=== PATIENT | female | born 1930 | race Caucasian/White ===

== ENCOUNTER 2016-06-20 13:14 | Inpatient (IN) | payer MEDICARE ==
[~2016-06-20] VITALS: Ht 167.6 cm; Wt 84.6 kg
[2016-06-20] VITALS (10 sets, daily range): BP systolic 78–123; BP diastolic 52–57; PULSE 96–109; RESP 10–24; TEMP 95.7–96.4; O2SAT 94–99
[~2016-06-20 13:14] MED LIST: CALCIUM CHLORIDE 10% SOLN 1 GRAM/10 ML SYR IV ONE; NORMOSOL R INJ 1,000 ML IV ONE; ONDANSETRON HCL 4 MG/2 ML VIAL IV PUSH ONE; PHENYLEPH/NS 1000 MCG/10 ML SYR IV ONE; PROPOFOL 200 MG/20 ML AMP IV ONE; SODIUM BICARBONATE 8.4% INJ 50 MEQ/50 ML SYR IV ONE; ePHEDrine/NS 25 MG/5 ML SYR IV ONE
[2016-06-20] MEDS ORDERED: COLA100C3 PO (13:38)
[2016-06-20] MEDS ORDERED: PROT40TA PO (13:38)
[2016-06-20] MEDS ORDERED: LACT10SO48 PO (13:38)
--- NOTE | 2016-06-20 13:40 | PD ---
HPI Chief Complaint: GI Complaint Time Seen by Provider: 13:40 Travel History International Travel<30 days: No Contact w/Intl Traveler<30days: No Traveled to known affect area: No History of Present Illness HPI 86-year-old female came to the emergency room with history of abdominal pain and blood pressure of 60 over palp. The history was partially obtained from the customer solutions architect and partially from the daughter who followed her soon after she was here. As per the daughter patient was released from [facility] about 3 weeks ago to the [facility] half-way. She was taken to [facility] in May 24 for confusion. She was diagnosed with anemia and UTI. Her hemoglobin level was 6.5. She received 3 blood transfusions and an upper endoscopy. As per the daughter she was told that she had a small erosion in her stomach which was not actively bleeding. The GI specialist did not think a colonoscopy would be a good idea given her age. She was given antibiotic for the UTI. She was discharged on Protonix. While in [facility] rehabilitation patient started complaining of left lower quadrant pain since past one week. As per the daughter she doesn't think she got evaluated for it. Today when the daughter went to check on her she found that her mother was looking very ill and frail and insisted that 911 should be called. EMS had given her about 500 cc of IV fluid. They were unable to get a temperature or pulse ox given acrocyanosis. Patient was on nonrebreather saturating 93%. She was awake and talking but seemed to be in distress. She pointed to her entire abdomen when asked regarding the location of the pain. Daughter says prior to all this her mother was not on any medications and very healthy. [facility] Past Medical History Narrative Medical List of her past medical, surgical, social and family history was reviewed from the nursing note. Anemia: Yes Arthritis: Yes (RA) Gastrointestinal Disorders: Yes (GI BLEED) Social History Alcohol Use: No Tobacco Use: No Substance Use: No Allergies-Medications (Allergen,Severity, Reaction): Coded Allergies: Beta Blockers (Verified Allergy, Severe, 06/20/16) Cipro (Verified Allergy, Severe, 06/20/16) Codeine (Verified Allergy, Severe, 06/20/16) Diazepam (Verified Allergy, Severe, 06/20/16) HMG-CoA Reductase Inhibitors (Verified Allergy, Severe, 06/20/16) Morphine (Verified Allergy, Severe, 06/20/16) Penicillin (Verified Allergy, Severe, 06/20/16) Sulfa (Verified Allergy, Severe, 06/20/16) Comments List of her allergies reviewed from the nursing note. Reported Meds & Prescriptions Reported Meds & Active Scripts Active Reported Protonix (Pantoprazole Sodium) 40 Mg Tab 40 Mg PO DAILY Constulose Liq (Lactulose) 10 Gm/15 Ml Soln 30 Ml PO Q12HR Colace (Docusate Sodium) 100 Mg Cap 100 Mg PO BID Narrative Medication List of her home medications reviewed from the nursing note. Review of Systems Except as stated in HPI: all other systems reviewed are Neg Physical Exam Narrative GENERAL: Awake, alert, elderly and frail, significant distress SKIN: Focused skin assessment warm/dry. HEAD: Atraumatic. Normocephalic. EYES: Pupils equal and round. No scleral icterus. No injection or drainage. ENT: No nasal bleeding or discharge. Mucous membranes dry. NECK: Trachea midline. No JVD. CARDIOVASCULAR: Regular rate and rhythm. No murmur appreciated. RESPIRATORY: No accessory muscle use. Clear to auscultation. Breath sounds equal bilaterally. GASTROINTESTINAL: Abdomen diffusely tender and distended. Absent bowel sounds. Hepatic and splenic margins not palpable. MUSCULOSKELETAL: No obvious deformities. No clubbing. No cyanosis. No edema. NEUROLOGICAL: Awake and alert. No obvious cranial nerve deficits. Motor grossly within normal limits. Normal speech. PSYCHIATRIC: Appropriate mood and affect; insight and judgment normal. Data Data Last Documented VS Orders Ct Brain W/O Iv Contrast(Rout) (06/20/16 ) Ct Thorax/ Chest Wo Iv Contras (06/20/16 ) Ct Abd/Pel W/O Iv Contrast (06/20/16 ) Electrocardiogram (06/20/16 13:41) Complete Blood Count With Diff (06/20/16 13:41) Comprehensive Metabolic Panel (06/20/16 13:41) Creatine Kinase (Cpk) (06/20/16 13:41) Prothrombin Time / Inr (Pt) (06/20/16 13:41) Troponin I (06/20/16 13:41) Thyroid Stimulating Hormone (06/20/16 13:41) Lactic Acid Sepsis Protocol (06/20/16 13:41) Urinalysis - C+S If Indicated (06/20/16 13:41) Blood Culture (06/20/16 13:41) Chest, Single Ap (06/20/16 13:41) Blood Glucose (06/20/16 13:41) Ecg Monitoring (06/20/16 13:41) Iv Access Insert/Monitor (06/20/16 13:41) Oximetry (06/20/16 13:41) Sodium Chloride 0.9% Flush (Ns Flush) (06/20/16 13:45) Sodium Chlor 0.9% 1000 Ml Inj (Ns 1000 M (06/20/16 13:41) Drug Screen, Random Urine (06/20/16 13:41) Salicylates (Aspirin) (06/20/16 13:41) Tylenol (Acetaminophen) (06/20/16 13:41) Sodium Chlor 0.9% 1000 Ml Inj (Ns 1000 M (06/20/16 13:45) Sodium Chlor 0.9% 1000 Ml Inj (Ns 1000 M (06/20/16 13:45) Aztreonam Inj (Azactam Inj) (06/20/16 13:45) Vancomycin Inj (Vancomycin Inj) (06/20/16 13:45) Type And Screen (06/20/16 13:41) Urinary Catheter Insert/Apply (06/20/16 13:41) Saran-Gastric Tube Insert/Mon (06/20/16 14:03) Admit Order (Ed Use Only) (06/20/16 14:24) Red Blood Cells (Rbc) (06/20/16 14:00) Labs Laboratory Tests Test 06/20/16 06/20/16 13:50 14:00 White Blood Count 16.1 TH/MM3 Red Blood Count 4.17 MIL/MM3 Hemoglobin 10.7 GM/DL Hematocrit 33.5 % Mean Corpuscular Volume 80.3 FL Mean Corpuscular Hemoglobin 25.6 PG Mean Corpuscular Hemoglobin 31.9 % Concent Red Cell Distribution Width 22.5 % Platelet Count 282 TH/MM3 Mean Platelet Volume 8.0 FL Neutrophils (%) (Auto) 90.4 % Lymphocytes (%) (Auto) 4.7 % Monocytes (%) (Auto) 4.8 % Eosinophils (%) (Auto) 0.0 % Basophils (%) (Auto) 0.1 % Neutrophils # (Auto) 14.5 TH/MM3 Lymphocytes # (Auto) 0.8 TH/MM3 Monocytes # (Auto) 0.8 TH/MM3 Eosinophils # (Auto) 0.0 TH/MM3 Basophils # (Auto) 0.0 TH/MM3 CBC Comment AUTO DIFF Differential Total Cells 100 Counted Neutrophils % (Manual) 61 % Band Neutrophils % 21 % Lymphocytes % 9 % Monocytes % 8 % Neutrophils # (Manual) 13.4 TH/MM3 Myelocytes 1 % Differential Comment FINAL DIFF MANUAL Platelet Estimate NORMAL Platelet Morphology Comment NORMAL Daniel Cells 1+ Acanthocytes 1+ Blood Type O NEGATIVE Antibody Screen NEGATIVE Crossmatch Leukocyte-Reduced Red Blood Cells Blood Bank Comment MDM Medical Decision Making Medical Screen Exam Complete: Yes Emergency Medical Condition: Yes Medical Record Reviewed: Yes Interpretation(s) Twelve-lead EKG was reviewed by me. Normal sinus rhythm, left axis deviation, old inferior and anterior OR, tachycardia. Heart rate of 100 bpm. Differential Diagnosis Ruptured AAA, perforated viscus, sepsis Narrative Course 2 PM I did a bedside quick ultrasound looking for AAA which I did not see. Patient was a difficult peripheral IV access and I decided to put a central line given her poor hemodynamic status. Patient tolerated the procedure well. I ordered total of 3 L of IV fluid bolus and antibiotic covering for sepsis. She was taken emergently to CT scan which showed a perforation with large amount of free air in the abdomen. Surgeon Dr. Wilson was contacted as well as the commercial retoucher Dr. Pitts. Dr. Wilson and Dr. Pitts both came down and saw the patient. Patient will be taken emergently for surgery. Meanwhile the CAT scan was reviewed and showed a mass in the left lower quadrant. At ordered a CT scan of her thorax as well which showed large right-sided pleural effusion with a possible metastatic lesion in the lung. Patient will be admitted to the ICU after the surgery. Her last blood pressure was 105 systolic before she left the ER. I spoke at length with her daughter and explained to her the critical condition of her mother. She had lots of question and I tried to answer to the best of my ability. Dr. Pitts and Dr. Wilson also spoke with the daughter. Daughter wanted everything to be done to save her mother's life. Critical Care Narrative Aggregate critical care time was 60 minutes. Time to perform other separately billable procedures was not included in the critical care time. My time did not include minutes spent treating any other patients simultaneously or on activities that did not directly contribute to the patient's treatment. The services I provided to this patient were to treat and/or prevent clinically significant deterioration that could result in: Septic shock, fluid resuscitation, perforated viscus I provided critical care services requiring my management, as noted below: Chart data review, documentation time, medication orders and management, vital sign assessments/reviewing monitor data, ordering and reviewing lab tests, ordering and interpreting/reviewing x-rays and diagnostic studies, care of the patient and discussion of the patient with the admitting physicians. Procedures Procedure Narrative CENTRAL VENOUS LINE: The site was prepped with Betadine and sterilely draped. It was infiltrated with 1% lidocaine plain. The deep vein was cannulated using normal Seldinger technique. A triple lumen central line was placed in the left subclavian site and secured with simple interrupted suture. The site was sterilely dressed. The patient tolerated the procedure well. Emergency department Abdominal Aortic Aneurysm ultrasound was performed with patient consent. Curvilinear probe was used in the transverse and sagittal views within the epigastric, supraumbilical, and infraumbilical without evidence of Abdominal Aortic Aneurysm. In fact no aorta was visualized. EKG Prior to Arrival: No Physician Communication Physician Communication Dr. Wilson, Dr. 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 Patient was a difficult peripheral IV access and I decided to put a central line given her poor hemodynamic status. Patient tolerated the procedure well. I ordered total of 3 L of IV fluid bolus and antibiotic covering for sepsis. She was taken emergently to CT scan which showed a perforation with large amount of free air in the abdomen. Surgeon Dr. Wilson was contacted as well as the commercial retoucher Dr. Pitts. Dr. Wilson and Dr. Pitts both came down and saw the patient. Patient will be taken emergently for surgery. Meanwhile the CAT scan was reviewed and showed a mass in the left lower quadrant. At ordered a CT scan of her thorax as well which showed large right-sided pleural effusion with a possible metastatic lesion in the lung. Patient will be admitted to the ICU after the surgery. Her last blood pressure was 105 systolic before she left the ER. I spoke at length with her daughter and explained to her the critical condition of her mother. She had lots of question and I tried to answer to the best of my ability. Dr. Pitts and Dr. Wilson also spoke with the daughter. Daughter wanted everything to be done to save her mother's life. Critical Care Narrative Aggregate critical care time was 60 minutes. Time to perform other separately billable procedures was not included in the critical care time. My time did not include minutes spent treating any other patients simultaneously or on activities that did not directly contribute to the patient's treatment. The services I provided to this patient were to treat and/or prevent clinically significant deterioration that could result in: Septic shock, fluid resuscitation, perforated viscus I provided critical care services requiring my management, as noted below: Chart data review, documentation time, medication orders and management, vital sign assessments/reviewing monitor data, ordering and reviewing lab tests, ordering and interpreting/reviewing x-rays and diagnostic studies, care of the patient and discussion of the patient with the admitting physicians. Procedures Procedure Narrative CENTRAL VENOUS LINE: The site was prepped with Betadine and sterilely draped. It was infiltrated with 1% lidocaine plain. The deep vein was cannulated using normal Seldinger technique. A triple lumen central line was placed in the left subclavian site and secured with simple interrupted suture. The site was sterilely dressed. The patient tolerated the procedure well. EKG Prior to Arrival: No Physician Communication Physician Communication Dr. Wilson, Dr. 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
[2016-06-20] MEDS ORDERED: SODIUM CHLOR 0.9% 1000 ML INJ 1,000 ML IV SCH (13:41)
[2016-06-20] MEDS ORDERED: AZTREONAM INJ 2,000 MG in SODIUM CHLORIDE 0.9% INJ 100 ML IV ONE (13:45)
[2016-06-20] MEDS ORDERED: VANCOMYCIN INJ 1,000 MG in SODIUM CHLOR 0.9% 250 ML INJ 250 ML IV ONE (13:45)
[2016-06-20] MEDS ORDERED: SODIUM CHLORIDE 0.9% FLUSH 10 ML FLUSH IVF PRN (13:45)
[2016-06-20] MEDS ORDERED: SODIUM CHLOR 0.9% 1000 ML INJ 1,000 ML IV ONE ×2 (13:45)
--- NOTE | 2016-06-20 14:08 | RADRPT ---
EXAM DATE/TIME: 06/20/2016 13:47 [facility] COMPARISON: No previous studies available for comparison. INDICATIONS : Altered mental status. RADIATION DOSE: 35.36 CTDIvol (mGy) MEDICAL HISTORY : Gastrointestinal bleed. SURGICAL HISTORY : None. ENCOUNTER: Initial ACUITY: 1 day PAIN SCALE: 0/10 LOCATION: cranial TECHNIQUE: Multiple contiguous axial images were obtained of the head. Using automated exposure control and adj ustment of the mA and/or kV according to patient size, radiation dose was kept as low as reasonably a chievable to obtain optimal diagnostic quality images. FINDINGS: CEREBRUM: The ventricles are normal for age. No evidence of midline shift, mass lesion, hemorrhage or acute in farction. No extra-axial fluid collections are seen. POSTERIOR FOSSA: The cerebellum and brainstem are intact. The 4th ventricle is midline. The cerebellopontine angle i s unremarkable. EXTRACRANIAL: The visualized portion of the orbits is intact. SKULL: The calvaria is intact. No evidence of skull fracture. CONCLUSION: No acute disease. Fabiola Griffiths MD on June 20, 2016 at 14:06 Board Certified Radiologist. This report was verified electronically.
[2016-06-20 14:20] LABS: AUTOMATED NEUTROPHIL # 14.5 TH/MM3 (1.8-7.7); BASOPHIL % 0.1 % (0.0-2.0); HEMATOCRIT 33.5 % (35.0-46.0); LYMPH % 4.7 % (9.0-44.0); LYMPHOCYTE # 0.8 TH/MM3 (1.0-4.8); MEAN CELL VOLUME 80.3 FL (80.0-100.0); MEAN CORPUSCULAR HEMOGLOBIN 25.6 PG (27.0-34.0); MEAN CORPUSCULAR HGB CONC 31.9 % (32.0-36.0); MONO % 4.8 % (0.0-8.0); NEUT % 90.4 % (16.0-70.0); PLATELET COUNT 282 TH/MM3 (150-450); RED BLOOD COUNT 4.17 MIL/MM3 (4.00-5.30); RED CELL DISTRIBUTION WIDTH 22.5 % (11.6-17.2); WHITE BLOOD COUNT 16.1 TH/MM3 (4.0-11.0)
[2016-06-20 14:22] LABS: HEMO FLAGS AUTO DIFF
--- NOTE | 2016-06-20 14:24 | RADRPT ---
EXAM DATE/TIME: 06/20/2016 13:51 [facility] COMPARISON: CT THORAX W/O CONTRAST, June 20, 2016, 13:51. INDICATIONS : Abdomen pain. ORAL CONTRAST: No oral contrast ingested. RADIATION DOSE: 9.82 CTDIvol (mGy) ; Combined studies - Abdomen/Pelvis MEDICAL HISTORY : Gastrointestinal bleed. SURGICAL HISTORY : None. ENCOUNTER: Initial ACUITY: 1 week PAIN SCALE: 9/10 LOCATION: Bilateral abdomen. TECHNIQUE: Volumetric scanning of the abdomen and pelvis was performed. Using automated exposure control and ad justment of the mA and/or kV according to patient size, radiation dose was kept as low as reasonably achievable to obtain optimal diagnostic quality images. FINDINGS: This is a significantly abnormal exam. There is a large right-sided pleural effusion with overlying compressive atelectasis. Basilar at electasis seen within the left lung base. Significant cardiomegaly with coronary artery disease. The right lung base also demonstrates a rounded 1 cm noncalcified nodule. There is a large amount of free air identified within the abdomen and pelvis. Large amount of fr ee fluid is identified adjacent to the right dome of the diaphragm and tracking within the mesentery and pooling within the dependent portions of the pelvis. This fluid demonstrates less than 10 Hounsfi eld units but by history is consistent with hemoperitoneum. There is an irregular mass involving the descending colon best seen on coronal series 601 images 33 through 43. The mass measures roughly 6.7 x 5.8 x 6.3 cm. The third portion of the duodenum is di splaced inferiorly and is immediately contiguous with the mass and there is a focal tract of air julianne ersing the mass and the third portion of the duodenum consistent with a area of fistula. The more pro ximal colon is distended with stool and the distal colon is decompressed. There is moderate to severe hydronephrosis of the left kidney with dilation of the left ureter down to the level of the mass. Th e right kidney is unremarkable. Are not obstructed renal stones versus vascular calcifications seen b ilaterally. The osseous structures demonstrate extensive degenerative change. No visualized lytic or blastic lesion. CONCLUSION: There is a large irregular mass involving the descending colon with tethering and fistulization with the adjacent duodenum and causing obstruction within the left kidney. There is a large amount of free air identified within the abdomen and pelvis consistent with bowel perforation. There is ascites and a large right-sided pleural effusion. The nodule identified within the right lung base is concerning for metastatic disease. Fabiola Griffiths MD on June 20, 2016 at 14:06 Board Certified Radiologist. This report was verified electronically.
--- NOTE | 2016-06-20 14:27 | RADRPT ---
EXAM DATE/TIME: 06/20/2016 13:51 [facility] COMPARISON: No previous studies available for comparison. INDICATIONS : Chest pain. RADIATION DOSE: 9.82 CTDIvol (mGy) ; Combined studies - Thorax/Abdomen/Pelvis MEDICAL HISTORY : Gastrointestinal bleed. SURGICAL HISTORY : None. ENCOUNTER: Initial ACUITY: 1 day PAIN SCALE: 9/10 LOCATION: Bilateral chest TECHNIQUE: Volumetric scanning of the chest was performed. Using automated exposure control and adjustment of t he mA and/or kV according to patient size, radiation dose was kept as low as reasonably achievable to obtain optimal diagnostic quality images. FINDINGS: LUNGS: There is a large right-sided pleural effusion with overlying compressive atelectasis. Trace pleural e ffusion identified on the left. There is a rounded 1 cm noncalcified nodule identified within the rig ht lower lobe. MEDIASTINUM: The heart is significantly enlarged and there is engorgement of the adjacent pulmonary vasculature co nsistent with congestive heart failure. AXILLAE: Within normal limits. No lymphadenopathy. MUSCULOSKELETAL: Within normal limits for patient age. MISCELLANEOUS: There is a large amount of free air as well as free fluid identified within the abdomen. These findin gs are fully discussed on the dedicated CT abdomen and pelvis. CONCLUSION: Large right-sided pleural effusion and overlying bilateral basilar atelectasis. Cardiomegaly with noreen dence of congestive heart failure. The nodule identified in the right lower lung is concerning for po ssible metastatic disease given the abnormal findings identified in the colon. Large amount of free a ir identified under the diaphragm and free fluid. The referring team is aware of these findings.. Fabiola Griffiths MD on June 20, 2016 at 14:22 Board Certified Radiologist. This report was verified electronically.
[2016-06-20 14:34] LABS: INTERNATIONAL NORMALIZED RATIO 1.7 RATIO; PROTHROMBIN TIME - PATIENT 19.2 SEC (9.8-11.6)
--- NOTE | 2016-06-20 14:40 | RADRPT ---
EXAM DATE/TIME: 06/20/2016 13:58 [facility] COMPARISON: No previous studies available for comparison. INDICATIONS : Altered mental status. MEDICAL HISTORY : Anemia. GI bleed. SURGICAL HISTORY : None. ENCOUNTER: Initial ACUITY: 1 day PAIN SCORE: Non-responsive. LOCATION: Bilateral chest FINDINGS: Single portable view of the chest demonstrates a left-sided central line with the tip overlying the S VC. The heart size is moderately enlarged. The left hemithorax is clear. There is a large area of prudencio e air under the diaphragm seen on the right with adjacent lucency consistent with the patient's right -sided pleural effusion. CONCLUSION: Appropriate positioning of the central line. Large amount of free air identified under the diaphragm. Right-sided pleural fluid. Fabiola Griffiths MD on June 20, 2016 at 14:38 Board Certified Radiologist. This report was verified electronically.
[2016-06-20 14:45] LABS: BANDS 21 % (0-6); MYELOCYTES 1 % (0-0); NEUTROPHIL # MANUAL DIFF 13.4 TH/MM3 (1.8-7.7); POLYS (SEG NEUTROPHILS) 61 % (16-70); WBC DIFF SAMPLE 100
[2016-06-20 14:46] LABS: ACANTHOCYTES 1+ (NORMAL); BURR CELLS 1+ (NORMAL); PLATELET ESTIMATE SMEAR NORMAL (NORMAL); PLATELET MORPHOLOGY NORMAL (NORMAL); SCAN/DIFF FINAL DIFF MANUAL
[2016-06-20] MEDS ORDERED: KETAMINE HCL 500 MG/5 ML VIAL ONE (14:46)
[2016-06-20] MEDS ORDERED: metroNIDAZOLE 500 MG INJ 100 ML IV ONE (15:00)
[2016-06-20 15:03] LABS: ACETAMINOPHEN 8.2 MCG/ML (10.0-30.0); BICARBONATE 17.2 MEQ/L (21.0-32.0); CALCIUM-PROTEIN CORRECTED 8.1 MG/DL (8.5-10.1); POTASSIUM 3.3 MEQ/L (3.5-5.1); TOTAL BILIRUBIN ADULT 0.4 MG/DL (0.2-1.0)
--- NOTE | 2016-06-20 15:06 | PD.CONS ---
HPI Service Critical Care Medicine Consult Requested By ED Reason for Consult Peritonitis, colon perforation Primary Care Physician Markos Marcus MD History of Present Illness 86 y/o intermediate resident with 7 day course of abdominal discomfort treated as outpatient. Presents today with free intraperitoneal air and distention. CT reveals sigmoid colon mass and proximal distention. CT cheat shows consideral bilateral basilar consolidation. Surgical service is evaluating for laparotomy, proximal colostomy. She presented is shock and hypotension and has responded to aggressive fluid resuscitation. Review of Systems ROS Abdominal disconfort. No SOB or chest pain. Past Family Social History Allergies: Coded Allergies: Beta Blockers (Verified Allergy, Severe, 06/20/16) Cipro (Verified Allergy, Severe, 06/20/16) Codeine (Verified Allergy, Severe, 06/20/16) Diazepam (Verified Allergy, Severe, 06/20/16) HMG-CoA Reductase Inhibitors (Verified Allergy, Severe, 06/20/16) Morphine (Verified Allergy, Severe, 06/20/16) Penicillin (Verified Allergy, Severe, 06/20/16) Sulfa (Verified Allergy, Severe, 06/20/16) Past Medical History Past Medical History Anemia: Yes Arthritis: Yes (RA) Gastrointestinal Disorders: Yes (GI BLEED) Social History Alcohol Use: No Tobacco Use: No Substance Use: No Allergies-Medications Allergies-Medications (Allergen,Severity, Reaction): Coded Allergies: Beta Blockers (Verified Allergy, Severe, 06/20/16) Cipro (Verified Allergy, Severe, 06/20/16) Codeine (Verified Allergy, Severe, 06/20/16) Diazepam (Verified Allergy, Severe, 06/20/16) HMG-CoA Reductase Inhibitors (Verified Allergy, Severe, 06/20/16) Morphine (Verified Allergy, Severe, 06/20/16) Penicillin (Verified Allergy, Severe, 06/20/16) Sulfa (Verified Allergy, Severe, 06/20/16) Reported Meds & Prescriptions Reported Meds & Active Scripts Active Reported Protonix (Pantoprazole Sodium) 40 Mg Tab 40 Mg PO DAILY Constulose Liq (Lactulose) 10 Gm/15 Ml Soln 30 Ml PO Q12HR Colace (Docusate Sodium) 100 Mg Cap 100 Mg PO BID Physical Exam Vital Signs Vital Signs Date Time Temp Pulse Resp B/P Pulse Ox O2 Delivery O2 Flow Rate FiO2 06/20/16 13:19 96 24 78/52 Physical Exam P 97, SBP 82, R 20, Sats 89%. Head: Normal. Neck: Supple. airway widely patent. Lungs: Good baljit air entry, no wheezes, few crackles. Heart: NL S1S2, 2/6 sys mur, LAS. No JVD. Abdomen: Generally distended, quiet. Tender to palpation. Extremities: Cool, marginal perfusion to fingers and toes. Neuro: Tracks with eyes. Moves upper limbs with purpose. Anxious. Septic Shock Reassessment Skin: Mottled Capillary Refill: Sluggish Assessment and Plan Problem List: (1) Severe sepsis with acute organ dysfunction ICD Code: A41.9 Status: Acute (2) Peritonitis (acute) generalized ICD Code: K65.0 Status: Acute (3) Bowel perforation ICD Code: K63.1 Status: Acute (4) ARYA (acute kidney injury) ICD Code: N17.9 Status: Acute Assessment and Plan Plan: 1. Aggressive hydration. 2. ABX coverage. 3. Protonix. 4. Lentz. 5. SCDs/ 6. Lactic acid serial 7. To OR for laparotomy. 8. Mechanical ventilation. Overall impression: Critically ill with severe sepsis and peritonitis. Will need immediate source control. Although risk for laparotomy is high at her age and condition, she has no chance of survival without resection of sigmoid and proximal diversion. The patient's daughter accepts these ricks. Critical care 39 mins Ru Pitts MD Jun 20, 2016 15:06
[2016-06-20] MEDS ORDERED: ALBUMIN HUMAN 5% 12.5 GM/250 ML BOTTLE IV ONE (15:13)
[2016-06-20 15:21] LABS: AMPHETAMINE, URINE NEG (NEG); BARBITURATES, URINE NEG (NEG); COCAINE, URINE NEG (NEG)
[2016-06-20] MEDS ORDERED: ACETAMINOPHEN 1000 MG/100 ML VIAL IV ONE (15:21)
[2016-06-20] MEDS ORDERED: FAMOTIDINE 20 MG/2 ML VIAL ONE (15:21)
[2016-06-20] MEDS ORDERED: DEXAMETHASONE SOD PHOS 4 MG/ML VIAL ONE (15:22)
[2016-06-20 15:27] LABS: BACTERIA, URINE MANY /hpf; BLOOD, URINE TRACE (NEG); GLUCOSE,URINE NEG (NEG); KETONE, URINE NEG (NEG); MUCUS URINE FEW /lpf (OCC); NITRITE,URINE NEG (NEG); URINE COLOR YELLOW (YELLW/STRAW)
[2016-06-20 15:29] LABS: COMMENT (UR) CATH-CULTURE IND; CULTURE IF INDICATED CATH CULTURE IND
[2016-06-20 16:00] LABS: BLOOD GAS BASE EXCESS -11.3 mmol/L (-2-2); BLOOD GAS CARBOXYHEMOGLOBIN 0.8 % (0-4); BLOOD GAS HCO3 16 mmol/L (22-26); BLOOD GAS METHEMOGLOBIN 1.2 % (0-2); BLOOD GAS O2 HGB SATURATION 96 % (90-100); BLOOD GAS OXYGEN CONTENT 14.8 Vol % (12.0-20.0); BLOOD GAS PCO2 47 mmHg (38-42); BLOOD GAS PO2 183 mmHg (61-120); BLOOD GAS TOTAL HGB 10.6 G/DL (12.0-16.0); TEMP CORR TO 98.6
[2016-06-20 16:04] LABS: CRITICAL VALUE YES; FIO2 100 %; OXYGEN DEVICE VENTILATOR; STAT YES; ULNAR PULSE PRESENT; VENT SETTINGS OR
[2016-06-20 16:08] LABS: LACTIC ACID GHOST NOT REPORTABLE
[2016-06-20 16:50] LABS: BLOOD GAS BASE EXCESS -6.1 mmol/L (-2-2); BLOOD GAS CARBOXYHEMOGLOBIN 1.4 % (0-4); BLOOD GAS HCO3 19 mmol/L (22-26); BLOOD GAS METHEMOGLOBIN 1.1 % (0-2); BLOOD GAS O2 HGB SATURATION 97 % (90-100); BLOOD GAS OXYGEN CONTENT 14.5 Vol % (12.0-20.0); BLOOD GAS PCO2 35 mmHg (38-42); BLOOD GAS PO2 168 mmHg (61-120); BLOOD GAS TOTAL HGB 10.5 G/DL (12.0-16.0); CRITICAL VALUE NO; FIO2 70 %; OXYGEN DEVICE VENTILATOR; STAT YES; TEMP CORR TO 98.6; ULNAR PULSE PRESENT; VENT SETTINGS OR
[2016-06-20] MEDS ORDERED: PROPOFOL 1000 MG/100 ML INJ 100 ML ONE (17:59)
--- NOTE | 2016-06-20 18:21 | HHI.PR ---
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
[2016-06-20] MEDS ORDERED: Post-op Orders (for Pharmacy) MISC XX ONE (18:30)
[2016-06-20] MEDS ORDERED: ONDANSETRON HCL 4 MG/2 ML VIAL IV PRN (18:30)
[2016-06-20] MEDS ORDERED: SODIUM CHLORIDE 0.9% FLUSH 5 ML FLUSH IVF PRN (18:30)
[2016-06-20] MEDS ORDERED: DEXTROSE 50% IN WATER 50 ML VIAL(D50) IV PRN (18:30)
[2016-06-20] MEDS ORDERED: diphenhydrAMINE HCL 50 MG/ML VIAL IV PRN (18:30)
[2016-06-20] MEDS ORDERED: MORPHINE SULFATE 4 MG/ML INJ IV PUSH PRN (18:30)
[2016-06-20] MEDS ORDERED: GLUCAGON 1 MG/ML VIAL IM/SQ PRN (18:30)
[2016-06-20] MEDS ORDERED: NOREPINEPHRINE 4 MG/4 ML AMP ONE (18:55)
[2016-06-20] MEDS ORDERED: fentaNYL CITRATE 250 MCG/5 ML AMP ONE (18:57)
[2016-06-20] MEDS ORDERED: MIDAZOLAM HCL 2 MG/2 ML VIAL ONE ×2 (18:57→18:58)
[2016-06-20 19:04] LABS: BLOOD GAS BASE EXCESS -5.8 mmol/L (-2-2); BLOOD GAS CARBOXYHEMOGLOBIN 1.4 % (0-4); BLOOD GAS HCO3 20 mmol/L (22-26); BLOOD GAS METHEMOGLOBIN 1.2 % (0-2); BLOOD GAS O2 HGB SATURATION 96 % (90-100); BLOOD GAS OXYGEN CONTENT 15.6 Vol % (12.0-20.0); BLOOD GAS PCO2 41 mmHg (38-42); BLOOD GAS PO2 142 mmHg (61-120); BLOOD GAS TOTAL HGB 11.4 G/DL (12.0-16.0); CRITICAL VALUE NO; OXYGEN DEVICE VENTILATOR; TEMP CORR TO 98.6
[2016-06-20 19:05] LABS: DRAW SITE ART LINE; FIO2 70 %; STAT YES; ULNAR PULSE PRESENT; VENT SETTINGS VAC/10/400/PEEP+7
[2016-06-20] MEDS ORDERED: PHENYLEPHRINE HCL 10 MG/ML VIAL ONE (19:18)
[2016-06-20 19:37] LABS: AUTOMATED NEUTROPHIL # 6.1 TH/MM3 (1.8-7.7); BASOPHIL % 0.2 % (0.0-2.0); EOSINOPHIL % 0.1 % (0.0-4.0); HEMATOCRIT 36.3 % (35.0-46.0); LYMPH % 10.4 % (9.0-44.0); LYMPHOCYTE # 0.7 TH/MM3 (1.0-4.8); MEAN CORPUSCULAR HEMOGLOBIN 25.5 PG (27.0-34.0); MEAN CORPUSCULAR HGB CONC 33.1 % (32.0-36.0); MONO % 3.8 % (0.0-8.0); NEUT % 85.5 % (16.0-70.0); PLATELET COUNT 207 TH/MM3 (150-450); RED BLOOD COUNT 4.71 MIL/MM3 (4.00-5.30); RED CELL DISTRIBUTION WIDTH 20.5 % (11.6-17.2); WHITE BLOOD COUNT 7.2 TH/MM3 (4.0-11.0)
[2016-06-20 19:39] LABS: HEMO FLAGS AUTO DIFF
[2016-06-20 19:40] LABS: POTASSIUM 3.7 MEQ/L (3.5-5.1)
--- NOTE | 2016-06-20 19:47 | RADRPT ---
EXAM DATE/TIME: 06/20/2016 19:14 [facility] COMPARISON: CHEST SINGLE AP, June 20, 2016, 13:58. INDICATIONS : Chest tube placement. MEDICAL HISTORY : Anemia. GI bleed. SURGICAL HISTORY : None. ENCOUNTER: Initial ACUITY: 1 day PAIN SCORE: Non-responsive. LOCATION: Bilateral chest FINDINGS: Support devices are in place. There is a right-sided chest tube in place. There is no pneumothorax. T here is an infiltrate in the right lung base. The left lung is grossly clear and well-aerated. CONCLUSION: 1. Right chest tube in place with no pneumothorax. 2. Right lower lung infiltrate. Wiley Oneal MD on June 20, 2016 at 19:45 Board Certified Radiologist. This report was verified electronically.
[2016-06-20] MEDS: SODIUM CHLOR 0.9% 1000 ML INJ 1,000 ML IV SCH (20:15)
[2016-06-20 20:20] LABS: BANDS 35 % (0-6); METAMYELOCYTES 14 % (0-1); NEUTROPHIL # MANUAL DIFF 6.5 TH/MM3 (1.8-7.7); POLYS (SEG NEUTROPHILS) 41 % (16-70); WBC DIFF SAMPLE 100
[2016-06-20 20:27] LABS: BURR CELLS 2+ (NORMAL)
[2016-06-20 20:28] LABS: KERATOCYTES OCC (NORMAL); TOXIC VACUOLATION PRESENT (NONE SEEN)
[2016-06-20 20:31] LABS: ACANTHOCYTES 1+ (NORMAL)
[2016-06-20 20:32] LABS: SCAN/DIFF FINAL DIFF MANUAL
[2016-06-20 20:34] LABS: PLATELET ESTIMATE SMEAR NORMAL (NORMAL); PLATELET MORPHOLOGY ENLARGED (NORMAL)
[2016-06-20] MEDS: SODIUM CHLORIDE 0.9% FLUSH 5 ML FLUSH IVF SCH (21:00)
[2016-06-20] MEDS ORDERED: INSULIN NovoLIN REGULAR SUPPLEMENTAL SCALE SQ SCH (21:00)
--- NOTE | 2016-06-20 21:15 | HHI.CCPN ---
Subjective Remarks/Hospital Course 86 y/o residential resident with 7 day course of abdominal discomfort treated as outpatient. Presents today with free intraperitoneal air and distention. CT reveals sigmoid colon mass and proximal distention. CT cheat shows consideral bilateral basilar consolidation. Surgical service is evaluating for laparotomy, proximal colostomy. She presented is shock and hypotension and has responded to aggressive fluid resuscitation. Subjective: 06/20/16 Seen in [facility] upon return from OR following ex lap with subtotal colectomy (transverse, descending, sigmoid colectomy), repair of duodenocolonic fistula, partial omentectomy, ileostomy. Right sided chest tube was placed for pleural effusion. Mass was noted in the liver intraoperatively. There is also suspected right lung mass. Intraoperatively received 3500 crystalloid, 250 albumin, 2 units packed red cells, 2 units FFP. Her and output was 200. EBL 300. She received 3 Amps of sodium bicarbonate in OR. She returns from OR on levophed 20 mcg/min and neosynephrine. Objective Vital Signs Date Time Temp Pulse Resp B/P Pulse Ox O2 Delivery O2 Flow Rate FiO2 06/20/16 20:00 101 16 115/50 97 Mechanical Ventilator 70 06/20/16 19:15 97.3 06/20/16 18:30 10 Result Diagram: 06/20/16 1847 06/20/16 1847 Other Results Laboratory Tests Test 06/20/16 06/20/16 06/20/16 15:55 16:30 19:00 Blood Gas Puncture Site DRAWN IN OR DRAWN IN OR ART LINE Blood Gas Patient Temperature 98.6 98.6 98.6 Blood Gas HCO3 16 mmol/L 19 mmol/L 20 mmol/L (22-26) (22-26) (22-26) Blood Gas Base Excess -11.3 mmol/L -6.1 mmol/L -5.8 mmol/L (-2-2) (-2-2) (-2-2) Blood Gas Oxygen Saturation 96 % (90-100) 97 % (90-100) 96 % (90-100) Arterial Blood pH 7.15 7.34 7.30 (7.380-7.420) (7.380-7.420) (7.380-7.420) Arterial Blood Partial 47 mmHg (38-42) 35 mmHg (38-42) 41 mmHg (38-42) Pressure CO2 Arterial Blood Partial 183 mmHg 168 mmHg 142 mmHg Pressure O2 (61-120) (61-120) (61-120) Arterial Blood Oxygen Content 14.8 Vol % 14.5 Vol % 15.6 Vol % (12.0-20.0) (12.0-20.0) (12.0-20.0) Arterial Blood 0.8 % (0-4) 1.4 % (0-4) 1.4 % (0-4) Carboxyhemoglobin Arterial Blood Methemoglobin 1.2 % (0-2) 1.1 % (0-2) 1.2 % (0-2) Blood Gas Hemoglobin 10.6 G/DL 10.5 G/DL 11.4 G/DL (12.0-16.0) (12.0-16.0) (12.0-16.0) Oxygen Delivery Device VENTILATOR VENTILATOR VENTILATOR Blood Gas Ventilator Setting OR OR VAC/10/400/PEEP+7 Blood Gas Inspired Oxygen 100 % 70 % 70 % Objective Remarks Drips: 0.9 NaCl at 125 L per hour Norepinephrine 20 mics grams per minute (70/h Propofol 10 g per KG per minute Diego-Synephrine 50 mcg/min Pulse 102, sinus tachycardia on the monitor, blood pressure 107/49 by left radial art line, sats 98% on mechanical ventilation GENERAL: Elderly well-developed female who is orotracheally intubated. SKIN: Dry. HEAD: Atraumatic. Normocephalic. EYES: Pupils equal and round, 5 mm and reactive 3 mm bilaterally. No scleral icterus. No injection or drainage. ENT: No nasal bleeding or discharge. Mucous membranes pink and moist. NGT currently to gravity, bridled NECK: Trachea midline. No JVD. CARDIOVASCULAR: Mildly tachycardic, regular. 2/6 systolic murmur. RESPIRATORY: Rales left base. Diminished breath sounds on the right. Right sided chest tube to -20 cm suction without air leak. There is 300 of serosanguineous fluid in the chamber. GASTROINTESTINAL: Abdomen distended, absent bowel sounds. There is a midline vertical dressing in place with very minimal blood staining in the inferior aspect. There are 2 LAWRENCE drains on the left. Both drains have cervicitis output. The uppermost drain is at the duodenum/colonic fistula repair. The lower LAWRENCE is in the pelvis per d/w Dr. Steve. Ileostomy in place with mucosa generally pink, very minimal duskiness. VASC: L radial art line in place. L subclavian CVL in place. MUSCULOSKELETAL: Extremities without clubbing, cyanosis, or edema. No obvious deformities. NEUROLOGICAL: Pupils as per above, unresponsive upon return from OR. A/P Problem List: (1) Peritonitis (acute) generalized ICD Code: K65.0 Status: Acute (2) Bowel perforation ICD Code: K63.1 Status: Acute (3) ARYA (acute kidney injury) ICD Code: N17.9 Status: Acute (4) Septic shock ICD Code: A41.9 Status: Acute (5) Abdominal mass ICD Code: R19.00 Status: Acute (6) Pleural effusion ICD Code: J90 Status: Resolved (7) Respiratory failure, acute ICD Code: J96.00 Status: Acute (8) UTI (urinary tract infection) ICD Code: N39.0 Status: Acute (9) Moderate protein malnutrition ICD Code: E44.0 Status: Chronic (10) Hypocalcemia ICD Code: E83.51 Status: Acute (11) Chronic anemia ICD Code: D64.9 Status: Chronic (12) Coagulopathy ICD Code: D68.9 Status: Acute (13) Liver mass ICD Code: R16.0 Status: Acute (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 RESP: Acute respiratory failure Right pleural effusion R lower lobe lung mass PRVC TV 450 R 18 IT 1 PEEP 5 FiO2 60%, weaning. Chest tube placed in OR 06/[address] Wilson for large right pleural effusion, suspected malignant, with R lower lobe mass. Chest tube to -20 cm suction Defer SBT until hemodynamically stabilized. CV: Septic shock Sinus tachycardia Cardiomegaly 0.9 NaCl at 125 mL per hour Levophed to maintain MAP greater than 65 Diego-Synephrine currently at 50 g per hour to maintain map greater than 65 Pal Trac for hemodynamic monitoring and resuscitation postoperatively. CO 4.4 SVV 10 CI 2.5 SV 45 SVI 25 Trend lactic acid. 4.4 down to 2.7. GI: Perforated sigmoid colon with large sigmoid mass Duodeno-colonic fistula Liver mass s/p ex lap with subtotal colectomy, ileostomy, duodeno-colonic fistula repair, partial omentectomy 06/20/16 Dr. Wilson Monitor LAWRENCE output. NGT to LIWS. FEN/RENAL: Acute kidney injury Moderate chronic protein energy malnutrition Hypocalcemia Lentz in place. Monitor intake and output. Monitor electrolytes and replace as indicated. Received calcium chloride 2 gram in OR. Check magnesium. ID: Septic shock secondary to perforated sigmoid mass with feculent intraperitoneal fluid intraoperatively. Leukocytosis UTI, present on admission Continue aztreonam 2 g IV q8, Flagyl 500 mg IV q8 . Received vancomycin upon admission. Fluconazole 200 mg IV daily. 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 secondary to poor nutritional status F/u pathology. Transfused 2 units packed red cells and 2 units FFP in the OR 06/20/16. Postop Hgb is 12. CBC/coags in a.m. ENDO: Monitor bedside glucose every 6 hours and initiate low-dose insulin sliding scale as indicated. PROPH: Protonix 40 mg IV daily for stress ulcer prophylaxis. Bilateral SCDs for DVT prophylaxis. Pharmacologic DVT prophylaxis when appropriate from surgical standpoint ACCESS: Left subclavian central venous line placed in ED by Dr. Yo 06/20 #1. Left radial art line placed in OR 06/20 #[address] Wilson. Additional CCT 36 minutes. Problem Qualifiers (1) Abdominal mass: Qualified Code: R19.04 - Left lower quadrant abdominal mass Gloria Alanis MD Jun 20, 2016 21:15
[2016-06-20] MEDS ORDERED: NOREPINEPHRINE-DEXTROSE DRIP 250 ML IV ONE (21:37)
[2016-06-20] MEDS ORDERED: PHENYLEPHRINE INJ 160 MG in DEXTROSE 5% IN WATE 500 ML INJ 484 ML IV SCH ×2 (21:45)
[2016-06-20] MEDS: PANTOPRAZOLE SODIUM 40 MG VIAL IV SCH (21:45)
[2016-06-20] MEDS ORDERED: TERBUTALINE INJ 1 MG/ML AMP SQ PRN ×2 (21:45)
[2016-06-20] MEDS ORDERED: GLUCAGON 1 MG/ML VIAL OTHER PRN (21:45)
[2016-06-20] MEDS ORDERED: DEXTROSE 50% IN WATER 50 ML VIAL(D50) IV PUSH PRN (21:45)
[2016-06-20] MEDS: metroNIDAZOLE 500 MG INJ 100 ML IV SCH (21:45)
[2016-06-20] MEDS: INSULIN ASPART SUPPLEMENTAL SCALE SQ SCH (21:45)
[2016-06-20] MEDS ORDERED: LACTATED RINGER'S 1000 ML INJ 1,000 ML IV ONE ×2 (22:15→23:15)
[2016-06-20 23:02] LABS: BLOOD GAS VENOUS BASE EXCESS -6.1 mmol/L (-2-2); BLOOD GAS VENOUS HCO3 21 mmol/L (22-26); BLOOD GAS VENOUS O2 CONTENT 12.6 Vol % (9.0-17.0); BLOOD GAS VENOUS O2 HGB SAT 79 % (70-76); BLOOD GAS VENOUS PCO2 60 mmHg (44-48); BLOOD GAS VENOUS PO2 54 mmHg (35-40); BLOOD GAS VENOUS pH 7.17 (7.360-7.400); TEMP CORR TO 98.6
[2016-06-20 23:03] LABS: CRITICAL VALUE YES; DRAW SITE CENTRAL LINE; FIO2 65 %; OXYGEN DEVICE VENTILATOR; STAT NO; VENT SETTINGS AC/10/400/PEEP7
[2016-06-20] MEDS ORDERED: MAGNESIUM SULFATE 1 GM PREMIX 100 ML IV ONE (23:15)
[2016-06-20] MEDS: FLUCONAZOLE 200 MG PREMIX BAG 100 ML IV SCH (23:26)
[2016-06-20] MEDS: AZTREONAM INJ 2,000 MG in SODIUM CHLORIDE 0.9% INJ 100 ML IV SCH (23:27)
--- NOTE | 2016-06-20 23:27 | MB ---
cc: OSMEL RENEE DATE OF CONSULTATION 06/20/16 REASON FOR CONSULTATION Pneumoperitoneum HISTORY OF PRESENT ILLNESS The patient is an 86-year-old female who presented to the emergency department with extreme hypotension. The patient was at [facility] on May 24 for confusion, was diagnosed with anemia and UTI. The patient received upper endoscopy and blood transfusions. Colonoscopy was not performed. The patient has had left lower quadrant pain over the past week. On workup, the patient was found to have pneumoperitoneum. PAST MEDICAL HISTORY 1. History of anemia 2. Arthritis. SOCIAL HISTORY She does not smoke, drink or use other medicines. ALLERGIES Multiple allergies including SEVERE ALLERGIES TO BETA CAROLINE CIPRO CODEINE DIAZEPAM [facility] COA REDUCTASE INHIBITORS MORPHINE PENICILLIN SULFA MEDICATIONS 1. Protonix, 2. Lactulose 3. Colace. PHYSICAL EXAMINATION GENERAL: A female who is in distress, frail and awake. SKIN: Warm and dry. HEENT: Pupils are equal and reactive. CHEST: Clear to auscultation. CARDIOVASCULAR: Regular rate and rhythm. ABDOMEN: Diffusely tender and distended. EXTREMITIES: The patient has cool extremities. NEUROLOGIC: She is awake and responsive. LABORATORY DATA WBCs of 16.1, hemoglobin is 10.7, platelets 282,000. Chemistries demonstrate potassium of 3.3, BUN and creatinine are elevated at 25 and 1.01. Coagulation is elevated with INR of 1.7. IMAGING STUDIES CT scan demonstrates pneumoperitoneum with a large mass in the left lower quadrant consistent with a neoplastic process. ASSESSMENT Pneumoperitoneum likely secondary to perforation of the colon due to obstructing colon mass. PLAN I have discussed with the patient's daughter and the patient that she needs to be taken emergently to the operating room since she is full code. She does not have a tissue diagnosis yet and this may be a malignant lesion that may be controllable. It is also possible that this is a perforated diverticulitis. I have discussed the need for colostomy and resection and control of the contamination. I have discussed with the patient and her daughter that this is an emergent procedure and they wish everything to be done. I discussed risks including but not limited to infection with an extremely high risk of this in the wound, colostomy which may be permanent and bleeding and anastomotic leak if any bowel was resected and reanastomosed. They vocalized understand and agree to proceed. She will be taken emergently to the operating room. MD JERRY Ramírez/ /9:20 PM /11:15 PM
[2016-06-20 23:58] LABS: BLOOD GAS BASE EXCESS -6.6 mmol/L (-2-2); BLOOD GAS CARBOXYHEMOGLOBIN 1.7 % (0-4); BLOOD GAS HCO3 19 mmol/L (22-26); BLOOD GAS METHEMOGLOBIN 0.9 % (0-2); BLOOD GAS O2 HGB SATURATION 97 % (90-100); BLOOD GAS OXYGEN CONTENT 14.3 Vol % (12.0-20.0); BLOOD GAS PCO2 40 mmHg (38-42); BLOOD GAS PO2 201 mmHg (61-120); BLOOD GAS TOTAL HGB 10.2 G/DL (12.0-16.0); CRITICAL VALUE YES; TEMP CORR TO 98.6
[2016-06-20 23:59] LABS: OXYGEN DEVICE VENTILATOR
[2016-06-21] VITALS (18 sets, daily range): BP systolic 99–148; BP diastolic 45–67; PULSE 91–107; RESP 18–25; TEMP 96.9–99.6; O2SAT 97–100
[2016-06-21] LABS: DRAW SITE ALINE; FIO2 60 %; STAT NO; VENT SETTINGS AC/18/450/PEEP5
--- NOTE | 2016-06-21 00:10 | RADRPT ---
EXAM DATE/TIME: 06/20/2016 23:20 [facility] COMPARISON: CT THORAX W/O CONTRAST, June 20, 2016, 13:51. CHEST SINGLE AP, June 20, 2016, 19:14. INDICATIONS : Evaluate the E-T tube. MEDICAL HISTORY : Gastrointestinal bleed. SURGICAL HISTORY : None. ENCOUNTER: Subsequent ACUITY: 1 day PAIN SCORE: Non-responsive. LOCATION: Bilateral chest FINDINGS: ET tube, NG tube, left subclavian line and right chest tube are well placed. A pneumothorax is not se en. The heart size is normal. There is mild increased density at the bases bilaterally being worse on the right. CONCLUSION: 1. ET tube in good position. 2. Right chest tube without evidence of pneumothorax. 3. Bibasilar areas of consolidation, atelectasis and mild effusion. Jarrett Hernández MD on June 21, 2016 at 0:07 Board Certified Radiologist. This report was verified electronically.
[2016-06-21] MEDS ORDERED: LACTATED RINGER'S 1000 ML INJ 1,000 ML IV ONE ×3 (01:45→06:45)
[2016-06-21] MEDS: SODIUM CHLOR 0.9% 1000 ML INJ 1,000 ML IV SCH ×3 (01:53→17:56)
[2016-06-21] MEDS: NOREPINEPHRINE-DEXTROSE DRIP 250 ML IV SCH ×5 (01:55→20:46)
[2016-06-21] MEDS: INSULIN ASPART SUPPLEMENTAL SCALE SQ SCH ×4 (03:45→21:45)
[2016-06-21 04:00] LABS: AUTOMATED NEUTROPHIL # 10.7 TH/MM3 (1.8-7.7); BASOPHIL % 0.2 % (0.0-2.0); HEMATOCRIT 37.2 % (35.0-46.0); LYMPH % 12.4 % (9.0-44.0); LYMPHOCYTE # 1.6 TH/MM3 (1.0-4.8); MEAN CELL VOLUME 77.3 FL (80.0-100.0); MEAN CORPUSCULAR HEMOGLOBIN 24.8 PG (27.0-34.0); MONO % 2.9 % (0.0-8.0); NEUT % 84.5 % (16.0-70.0); PLATELET COUNT 193 TH/MM3 (150-450); RED BLOOD COUNT 4.81 MIL/MM3 (4.00-5.30); RED CELL DISTRIBUTION WIDTH 21.7 % (11.6-17.2); WHITE BLOOD COUNT 12.7 TH/MM3 (4.0-11.0)
[2016-06-21 04:08] LABS: INTERNATIONAL NORMALIZED RATIO 1.4 RATIO
[2016-06-21 04:10] LABS: BICARBONATE 19.1 MEQ/L (21.0-32.0); HEMO FLAGS AUTO DIFF; POTASSIUM 3.8 MEQ/L (3.5-5.1)
[2016-06-21 04:28] LABS: CALCIUM-PROTEIN CORRECTED 9.5 MG/DL (8.5-10.1)
[2016-06-21] MEDS ORDERED: ALBUMIN HUMAN 25% 25 GM/100 ML BAGP IV ONE (04:30)
[2016-06-21] MEDS: VASOPRESSIN INJ 40 UNITS in DEXTROSE 5% IN WATER 100ML INJ 98 ML IV SCH ×4 (04:43→20:39)
[2016-06-21 05:32] LABS: BLOOD GAS VENOUS BASE EXCESS -4.1 mmol/L (-2-2); BLOOD GAS VENOUS HCO3 20 mmol/L (22-26); BLOOD GAS VENOUS O2 CONTENT 8.2 Vol % (9.0-17.0); BLOOD GAS VENOUS O2 HGB SAT 58 % (70-76); BLOOD GAS VENOUS PCO2 36 mmHg (44-48); BLOOD GAS VENOUS PO2 31 mmHg (35-40); BLOOD GAS VENOUS pH 7.37 (7.360-7.400); CRITICAL VALUE NO; OXYGEN DEVICE VENTILATOR; TEMP CORR TO 98.6
[2016-06-21 05:33] LABS: DRAW SITE CENTRAL LINE; FIO2 40 %
[2016-06-21] MEDS: metroNIDAZOLE 500 MG INJ 100 ML IV SCH ×2 (05:40→13:42)
--- NOTE | 2016-06-21 06:56 | HHI.CCPN ---
Subjective Remarks/Hospital Course 86 y/o long-term resident with 7 day course of abdominal discomfort treated as outpatient. Presents today with free intraperitoneal air and distention. CT reveals sigmoid colon mass and proximal distention. CT cheat shows consideral bilateral basilar consolidation. Surgical service is evaluating for laparotomy, proximal colostomy. She presented is shock and hypotension and has responded to aggressive fluid resuscitation. 06/20/16 Seen in [facility] upon return from OR following ex lap with subtotal colectomy (transverse, descending, sigmoid colectomy), repair of duodenocolonic fistula, partial omentectomy, ileostomy. Right sided chest tube was placed for pleural effusion. Mass was noted in the liver intraoperatively. There is also suspected right lung mass. Intraoperatively received 3500 crystalloid, 250 albumin, 2 units packed red cells, 2 units FFP. Her and output was 200. EBL 300. She received 3 Amps of sodium bicarbonate in OR. She returns from OR on levophed 20 mcg/min and neosynephrine. 06/21: Continuing septic course after gross peritoneal contamination from perforated colon. 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 Objective Vital Signs Date Time Temp Pulse Resp B/P Pulse Ox O2 Delivery O2 Flow Rate FiO2 06/21/16 04:06 100 40 06/21/16 04:00 107 06/21/16 04:00 99.6 25 99/45 06/20/16 20:40 Mechanical Ventilator 06/20/16 18:30 10 Intake and Output 06/20/16 06/20/16 06/21/16 08:00 16:00 00:00 Intake Total 7789 ml Output Total 1742 ml Balance 6047 ml Result Diagram: 06/21/16 0340 06/21/16 0340 Other Results Laboratory Tests Test 06/20/16 06/20/16 06/20/16 06/20/16 15:55 16:30 19:00 22:54 Blood Gas Puncture Site DRAWN IN OR DRAWN IN OR ART LINE CENTRAL LINE Blood Gas Patient Temperature 98.6 98.6 98.6 98.6 Blood Gas HCO3 16 mmol/L 19 mmol/L 20 mmol/L (22-26) (22-26) (22-26) Blood Gas Base Excess -11.3 mmol/L -6.1 mmol/L -5.8 mmol/L (-2-2) (-2-2) (-2-2) Blood Gas Oxygen Saturation 96 % (90-100) 97 % (90-100) 96 % (90-100) Arterial Blood pH 7.15 7.34 7.30 (7.380-7.420) (7.380-7.420) (7.380-7.420) Arterial Blood Partial 47 mmHg (38-42) 35 mmHg (38-42) 41 mmHg (38-42) Pressure CO2 Arterial Blood Partial 183 mmHg 168 mmHg 142 mmHg Pressure O2 (61-120) (61-120) (61-120) Arterial Blood Oxygen Content 14.8 Vol % 14.5 Vol % 15.6 Vol % (12.0-20.0) (12.0-20.0) (12.0-20.0) Arterial Blood 0.8 % (0-4) 1.4 % (0-4) 1.4 % (0-4) Carboxyhemoglobin Arterial Blood Methemoglobin 1.2 % (0-2) 1.1 % (0-2) 1.2 % (0-2) Blood Gas Hemoglobin 10.6 G/DL 10.5 G/DL 11.4 G/DL (12.0-16.0) (12.0-16.0) (12.0-16.0) Oxygen Delivery Device VENTILATOR VENTILATOR VENTILATOR VENTILATOR Blood Gas Ventilator Setting OR OR VAC//PEEP+7 AC//PEEP7 Blood Gas Inspired Oxygen 100 % 70 % 70 % 65 % Venous Blood pH 7.17 (7.360-7.400) Venous Blood Partial Pressure 60 mmHg (44-48) CO2 Venous Blood Partial Pressure 54 mmHg (35-40) O2 Venous Blood HCO3 21 mmol/L (22-26) Venous Blood Oxygen Saturation 79 % (70-76) Venous Blood Oxygen Content 12.6 Vol % (9.0-17.0) Venous Blood Base Excess -6.1 mmol/L (-2-2) Test 06/20/16 06/21/16 23:52 05:23 Blood Gas Puncture Site AMY CENTRAL LINE Blood Gas Patient Temperature 98.6 98.6 Blood Gas HCO3 19 mmol/L (22-26) Blood Gas Base Excess -6.6 mmol/L (-2-2) Blood Gas Oxygen Saturation 97 % (90-100) Arterial Blood pH 7.29 (7.380-7.420) Arterial Blood Partial 40 mmHg (38-42) Pressure CO2 Arterial Blood Partial 201 mmHg Pressure O2 (61-120) Arterial Blood Oxygen Content 14.3 Vol % (12.0-20.0) Arterial Blood 1.7 % (0-4) Carboxyhemoglobin Arterial Blood Methemoglobin 0.9 % (0-2) Blood Gas Hemoglobin 10.2 G/DL (12.0-16.0) Oxygen Delivery Device VENTILATOR VENTILATOR Blood Gas Ventilator Setting AC/18/450/PEEP5 SEE COMMENT Blood Gas Inspired Oxygen 60 % 40 % Venous Blood pH 7.37 (7.360-7.400) Venous Blood Partial Pressure 36 mmHg (44-48) CO2 Venous Blood Partial Pressure 31 mmHg (35-40) O2 Venous Blood HCO3 20 mmol/L (22-26) Venous Blood Oxygen Saturation 58 % (70-76) Venous Blood Oxygen Content 8.2 Vol % (9.0-17.0) Venous Blood Base Excess -4.1 mmol/L (-2-2) Objective Remarks Drips: 0.9 NaCl at 125 L per hour Norepinephrine 20 mics grams per minute (70/h Propofol 10 g per KG per minute Diego-Synephrine 50 mcg/min Dobutamine 2.5 mcg/kg/min Pulse 98, sinus tachycardia on the monitor, r 22, blood pressure 123/46 by left radial art line, sats 97% on mechanical ventilation GENERAL: Elderly female, orotracheally intubated. SKIN: Dry. HEAD: Atraumatic. Normocephalic. EYES: Pupils equal and round, 5 mm and reactive 3 mm bilaterally. No scleral icterus. ENT: No nasal bleeding or discharge. Mucous membranes pink and moist. NGT currently to gravity, bridled NECK: Trachea midline. Oral intubation. CARDIOVASCULAR: Mildly tachycardic, regular. 2/6 systolic murmur. No JVD. RESPIRATORY: Rales left base. Diminished breath sounds on the right. Right sided chest tube to -20 cm suction without air leak. GASTROINTESTINAL: Abdomen distended, absent bowel sounds. Midline dressing clear drainage. There are 2 LAWRENCE drains on the left. Both drains have cervicitis output. The uppermost drain is at the duodenum/colonic fistula repair. The lower LAWRENCE is in the pelvis per d/w Dr. Wilson. Ileostomy in place with mucosa generally dark pink, some minimal duskiness. VASC: L radial art line in place. L subclavian CVL in place. MUSCULOSKELETAL: Extremities without clubbing, cyanosis, or edema. No obvious deformities. NEUROLOGICAL: Pupils as per above, heavily sedated. A/P Problem List: (1) Peritonitis (acute) generalized ICD Code: K65.0 Status: Acute (2) Bowel perforation ICD Code: K63.1 Status: Acute (3) ARYA (acute kidney injury) ICD Code: N17.9 Status: Acute (4) Septic shock ICD Code: A41.9 Status: Acute (5) Abdominal mass ICD Code: R19.00 Status: Acute (6) Pleural effusion ICD Code: J90 Status: Resolved (7) Respiratory failure, acute ICD Code: J96.00 Status: Acute (8) UTI (urinary tract infection) ICD Code: N39.0 Status: Acute (9) Moderate protein malnutrition ICD Code: E44.0 Status: Chronic (10) Hypocalcemia ICD Code: E83.51 Status: Acute (11) Chronic anemia ICD Code: D64.9 Status: Chronic (12) Coagulopathy ICD Code: D68.9 Status: Acute (13) Liver mass ICD Code: R16.0 Status: Acute (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 RESP: Acute respiratory failure Right pleural effusion R lower lobe lung mass PRVC TV 450 R 18 IT 1 PEEP 5 FiO2 60%, weaning. Chest tube placed in OR 06/[address] Wilson for large right pleural effusion, suspected malignant, with R lower lobe mass. Chest tube to -20 cm suction Defer SBT until hemodynamically stabilized. CV: Septic shock Sinus tachycardia Cardiomegaly 0.9 NaCl at 125 mL per hour Levophed to maintain MAP greater than 65 Diego-Synephrine currently at 50 g per hour to maintain map greater than 65 Pal Trac for hemodynamic monitoring and resuscitation postoperatively. CO 4.4 SVV 10 CI 2.5 SV 45 SVI 25 Trend lactic acid. 4.4 down to 2.7. Add dobutamine, add volume again. GI: Perforated sigmoid colon with large sigmoid mass Duodeno-colonic fistula Liver mass s/p ex lap with subtotal colectomy, ileostomy, duodeno-colonic fistula repair, partial omentectomy 06/20/16 Dr. Wilson Monitor LAWRENCE output. NGT to LIWS. FEN/RENAL: Acute kidney injury Moderate chronic protein energy malnutrition Hypocalcemia Lentz in place. Monitor intake and output. Monitor electrolytes and replace as indicated. Received calcium chloride 2 gram in OR. Check magnesium. ID: Septic shock secondary to perforated sigmoid mass with feculent intraperitoneal fluid intraoperatively. Leukocytosis UTI, present on admission Continue aztreonam 2 g IV q8, Flagyl 500 mg IV q8 . Received vancomycin upon admission. Fluconazole 200 mg IV daily. 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 secondary to poor nutritional status F/u pathology. Transfused 2 units packed red cells and 2 units FFP in the OR 06/20/16. Postop Hgb is 12. CBC/coags in a.m. ENDO: Monitor bedside glucose every 6 hours and initiate low-dose insulin sliding scale as indicated. PROPH: Protonix 40 mg IV daily for stress ulcer prophylaxis. Bilateral SCDs for DVT prophylaxis. Pharmacologic DVT prophylaxis when appropriate from surgical standpoint ACCESS: Left subclavian central venous line placed in ED by Dr. Yo 06/20 #2. Left radial art line placed in OR 06/20 #2 Overall impression: She is critically ill with septic shock requiring multiple vasopressors, aggressive fluid infusion, and oliguria. Stoma indicates marginal perfusion as her vasopressor requirements increase. Discussed with Dr. Alanis; we will add dobutamine for inotrope and peripheral perfusion, and undoubtedly continue volume infusion. It will be hard for this elderly woman to survive this illness, particularly in the context of the operative findings. CCT 39 minutes. Problem Qualifiers (1) Abdominal mass: Qualified Code: R19.04 - Left lower quadrant abdominal mass Ru Pitts MD Jun 21, 2016 06:56
[2016-06-21] MEDS: AZTREONAM INJ 2,000 MG in SODIUM CHLORIDE 0.9% INJ 100 ML IV SCH ×3 (07:00→22:23)
[2016-06-21] MEDS: HYDROCORTISONE SOD SUCCINATE 100 MG VIAL IV PUSH SCH ×3 (07:00→17:53)
[2016-06-21] MEDS: DOBUTamine PREMIX DRIP 250 ML IV SCH ×2 (07:03→17:07)
[2016-06-21 08:49] LABS: BANDS 31 % (0-6); BURR CELLS 2+ (NORMAL); CORRECTED NUCLEATED RBC 1 /100 WBC (0-0); METAMYELOCYTES 3 % (0-1); MYELOCYTES 2 % (0-0); NEUTROPHIL # MANUAL DIFF 11.4 TH/MM3 (1.8-7.7); PLATELET ESTIMATE SMEAR NORMAL (NORMAL); PLATELET MORPHOLOGY NORMAL (NORMAL); POLYS (SEG NEUTROPHILS) 54 % (16-70); SCAN/DIFF FINAL DIFF MANUAL; WBC DIFF SAMPLE 100
[2016-06-21] MEDS: SODIUM CHLORIDE 0.9% FLUSH 5 ML FLUSH IVF SCH ×2 (09:33→20:47)
[2016-06-21] MEDS: CHLORHEXIDINE 0.12% (ORAL KIT) 15 ML CUP MT SCH ×2 (09:34→20:48)
[2016-06-21] MEDS: PROPOFOL 1000 MG/100 ML INJ 100 ML IV SCH ×2 (09:45→20:46)
--- NOTE | 2016-06-21 10:21 | EKG ---
Date Performed: 06/20/2016 Time Performed: 14:30:31 PTAGE: 86 years EKG: SINUS TACHYCARDIA POSSIBLE ANTERIOR MYOCARDIAL INFARCTION ABNORMAL ECG NO PREVIOUS TRACING DOCTOR: Susan Lynne Interpretating Date/Time 06/21/2016 10:20:52
--- NOTE | 2016-06-21 11:15 | HHI.PR ---
Subjective Subjective Notes critically ill overnight Objective Vitals/I&O Vital Signs Date Time Temp Pulse Resp B/P Pulse Ox O2 Delivery O2 Flow Rate FiO2 06/21/16 07:14 99 40 06/21/16 06:00 107 06/21/16 04:00 99.6 25 99/45 06/20/16 20:40 Mechanical Ventilator 06/20/16 18:30 10 Labs Laboratory Tests Test 06/20/16 06/20/16 06/20/16 06/20/16 13:50 14:00 14:30 15:35 White Blood Count 16.1 Red Blood Count 4.17 Hemoglobin 10.7 Hematocrit 33.5 Mean Corpuscular Volume 80.3 Mean Corpuscular Hemoglobin 25.6 Mean Corpuscular Hemoglobin 31.9 Concent Red Cell Distribution Width 22.5 Platelet Count 282 Mean Platelet Volume 8.0 Neutrophils (%) (Auto) 90.4 Lymphocytes (%) (Auto) 4.7 Monocytes (%) (Auto) 4.8 Eosinophils (%) (Auto) 0.0 Basophils (%) (Auto) 0.1 Neutrophils # (Auto) 14.5 Lymphocytes # (Auto) 0.8 Monocytes # (Auto) 0.8 Eosinophils # (Auto) 0.0 Basophils # (Auto) 0.0 CBC Comment AUTO DIFF Differential Total Cells 100 Counted Neutrophils % (Manual) 61 Band Neutrophils % 21 Lymphocytes % 9 Monocytes % 8 Neutrophils # (Manual) 13.4 Myelocytes 1 Differential Comment FINAL DIFF MANUAL Platelet Estimate NORMAL Platelet Morphology Comment NORMAL Daniel Cells 1+ Acanthocytes 1+ Prothrombin Time 19.2 Prothromb Time International 1.7 Ratio Sodium Level 143 Potassium Level 3.3 Chloride Level 114 Carbon Dioxide Level 17.2 Anion Gap 12 Blood Urea Nitrogen 25 Creatinine 1.01 Estimat Glomerular Filtration 52 Rate Random Glucose 76 Lactic Acid Level 4.4 Calcium Level 6.4 Protein Corrected Calcium 8.1 Total Bilirubin 0.4 Aspartate Amino Transf 17 (AST/SGOT) Alanine Aminotransferase 8 (ALT/SGPT) Alkaline Phosphatase 67 Total Creatine Kinase 51 Troponin I 0.15 Total Protein 3.9 Albumin 1.4 Thyroid Stimulating Hormone 7.650 3rd Gen Salicylates Level LESS THAN 1.7 Acetaminophen Level 8.2 Blood Type O NEGATIVE Antibody Screen NEGATIVE Crossmatch Leukocyte-Reduced Leukocyte-Reduced Red Blood Red Blood Cells Cells Blood Bank Comment Urine Color YELLOW Urine Turbidity HAZY Urine pH 5.0 Urine Specific [place] 1.008 Urine Protein NEG Urine Glucose (UA) NEG Urine Ketones NEG Urine Occult Blood TRACE Urine Nitrite NEG Urine Bilirubin NEG Urine Urobilinogen LESS THAN 2.0 Urine Leukocyte Esterase LARGE Urine RBC 8 Urine WBC 23 Urine Amorphous Sediment RARE Urine Bacteria MANY Urine Mucus FEW Microscopic Urinalysis Comment CATH-CULTURE IND Urine Opiates Screen NEG Urine Barbiturates Screen NEG Urine Amphetamines Screen NEG Urine Benzodiazepines Screen NEG Urine Cocaine Screen NEG Urine Cannabinoids Screen NEG Test 06/20/16 06/20/16 06/20/16 06/20/16 15:55 16:30 18:47 19:00 Blood Gas Puncture Site DRAWN IN OR DRAWN IN OR ART LINE Blood Gas Patient Temperature 98.6 98.6 98.6 Blood Gas HCO3 16 19 20 Blood Gas Base Excess -11.3 -6.1 -5.8 Blood Gas Oxygen Saturation 96 97 96 Arterial Blood pH 7.15 7.34 7.30 Arterial Blood Partial 47 35 41 Pressure CO2 Arterial Blood Partial 183 168 142 Pressure O2 Arterial Blood Oxygen Content 14.8 14.5 15.6 Arterial Blood 0.8 1.4 1.4 Carboxyhemoglobin Arterial Blood Methemoglobin 1.2 1.1 1.2 Blood Gas Hemoglobin 10.6 10.5 11.4 Oxygen Delivery Device VENTILATOR VENTILATOR VENTILATOR Blood Gas Ventilator Setting OR OR VAC/10/400/PEEP+7 Blood Gas Inspired Oxygen 100 70 70 White Blood Count 7.2 Red Blood Count 4.71 Hemoglobin 12.0 Hematocrit 36.3 Mean Corpuscular Volume 77.0 Mean Corpuscular Hemoglobin 25.5 Mean Corpuscular Hemoglobin 33.1 Concent Red Cell Distribution Width 20.5 Platelet Count 207 Mean Platelet Volume 7.7 Neutrophils (%) (Auto) 85.5 Lymphocytes (%) (Auto) 10.4 Monocytes (%) (Auto) 3.8 Eosinophils (%) (Auto) 0.1 Basophils (%) (Auto) 0.2 Neutrophils # (Auto) 6.1 Lymphocytes # (Auto) 0.7 Monocytes # (Auto) 0.3 Eosinophils # (Auto) 0.0 Basophils # (Auto) 0.0 CBC Comment AUTO DIFF Differential Total Cells 100 Counted Neutrophils % (Manual) 41 Band Neutrophils % 35 Lymphocytes % 6 Monocytes % 4 Neutrophils # (Manual) 6.5 Metamyelocytes 14 Differential Comment FINAL DIFF MANUAL Toxic Vacuolation PRESENT Platelet Estimate NORMAL Platelet Morphology Comment ENLARGED Ovalocytes Daniel Cells 2+ Acanthocytes 1+ Keratocytes OCC Sodium Level 144 Potassium Level 3.7 Chloride Level 111 Carbon Dioxide Level 25.0 Anion Gap 8 Blood Urea Nitrogen 26 Creatinine 0.78 Estimat Glomerular Filtration 70 Rate Random Glucose 105 Calcium Level 8.2 Magnesium Level 1.6 Test 06/20/16 06/20/16 06/20/16 06/20/16 19:50 22:54 23:52 23:55 Lactic Acid Level 2.7 3.8 Blood Gas Puncture Site CENTRAL LINE AMY Blood Gas Patient Temperature 98.6 98.6 Venous Blood pH 7.17 Venous Blood Partial Pressure 60 CO2 Venous Blood Partial Pressure 54 O2 Venous Blood HCO3 21 Venous Blood Oxygen Saturation 79 Venous Blood Oxygen Content 12.6 Venous Blood Base Excess -6.1 Oxygen Delivery Device VENTILATOR VENTILATOR Blood Gas Ventilator Setting AC/10/400/PEEP7 AC/18/450/PEEP5 Blood Gas Inspired Oxygen 65 60 Blood Gas HCO3 19 Blood Gas Base Excess -6.6 Blood Gas Oxygen Saturation 97 Arterial Blood pH 7.29 Arterial Blood Partial 40 Pressure CO2 Arterial Blood Partial 201 Pressure O2 Arterial Blood Oxygen Content 14.3 Arterial Blood 1.7 Carboxyhemoglobin Arterial Blood Methemoglobin 0.9 Blood Gas Hemoglobin 10.2 Test 06/21/16 06/21/16 03:40 05:23 White Blood Count 12.7 Red Blood Count 4.81 Hemoglobin 11.9 Hematocrit 37.2 Mean Corpuscular Volume 77.3 Mean Corpuscular Hemoglobin 24.8 Mean Corpuscular Hemoglobin 32.0 Concent Red Cell Distribution Width 21.7 Platelet Count 193 Mean Platelet Volume 7.9 Neutrophils (%) (Auto) 84.5 Lymphocytes (%) (Auto) 12.4 Monocytes (%) (Auto) 2.9 Eosinophils (%) (Auto) 0.0 Basophils (%) (Auto) 0.2 Neutrophils # (Auto) 10.7 Lymphocytes # (Auto) 1.6 Monocytes # (Auto) 0.4 Eosinophils # (Auto) 0.0 Basophils # (Auto) 0.0 CBC Comment AUTO DIFF Differential Total Cells 100 Counted Neutrophils % (Manual) 54 Band Neutrophils % 31 Lymphocytes % 7 Monocytes % 3 Neutrophils # (Manual) 11.4 Metamyelocytes 3 Myelocytes 2 Nucleated Red Blood Cells 1 Differential Comment FINAL DIFF MANUAL Platelet Estimate NORMAL Platelet Morphology Comment NORMAL Daniel Cells 2+ Prothrombin Time 16.0 Prothromb Time International 1.4 Ratio Sodium Level 142 Potassium Level 3.8 Chloride Level 111 Carbon Dioxide Level 19.1 Anion Gap 12 Blood Urea Nitrogen 28 Creatinine 0.90 Estimat Glomerular Filtration 59 Rate Random Glucose 117 Lactic Acid Level 3.2 Calcium Level 7.3 Protein Corrected Calcium 9.5 Total Protein 3.5 Blood Gas Puncture Site CENTRAL LINE Blood Gas Patient Temperature 98.6 Venous Blood pH 7.37 Venous Blood Partial Pressure 36 CO2 Venous Blood Partial Pressure 31 O2 Venous Blood HCO3 20 Venous Blood Oxygen Saturation 58 Venous Blood Oxygen Content 8.2 Venous Blood Base Excess -4.1 Oxygen Delivery Device VENTILATOR Blood Gas Ventilator Setting SEE COMMENT Blood Gas Inspired Oxygen 40 Date/Time Procedure Status Source Growth 06/20/16 16:40 Gram Stain - Final Resulted Fluid Peritoneal Fluid 06/20/16 16:40 Body Fluid Culture Resulted Fluid Peritoneal Fluid Pending 06/20/16 16:40 Fungal Smear Received Fluid Peritoneal Fluid Pending 06/20/16 16:40 Fungal Culture Received Fluid Peritoneal Fluid Pending 06/20/16 16:40 Acid Fast Stain Received Fluid Peritoneal Fluid Pending 06/20/16 16:40 Mycobacterial Culture Received Fluid Peritoneal Fluid Pending 06/20/16 14:30 Urine Culture Received Urine Catheterized Urine Pending 06/20/16 14:00 Aerobic Blood Culture - Preliminary Resulted Blood Peripheral NO GROWTH IN 1 DAY 06/20/16 14:00 Anaerobic Blood Culture - Preliminary Resulted Blood Peripheral NO GROWTH IN 1 DAY Abdomen: Non-distended Narrative Exam wound clean, bandage on, ostomy viable, LAWRENCE serous A/P Assessment and Plan 86yo female with perforated colon cancer, critically ill s/p: Ex laparotomy, subtotal colectomy Debulking sigmoid colon tumor Closure duodenocolonic fistula Partial omentectomy End ileostomy 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
[2016-06-21 18:58] LABS: BICARBONATE 18.5 MEQ/L (21.0-32.0); POTASSIUM 3.9 MEQ/L (3.5-5.1)
[2016-06-21 19:28] LABS: CALCIUM-PROTEIN CORRECTED 9.2 MG/DL (8.5-10.1)
[2016-06-21] MEDS: FLUCONAZOLE 200 MG PREMIX BAG 100 ML IV SCH (20:47)
[2016-06-21] MEDS: PANTOPRAZOLE SODIUM 40 MG VIAL IV SCH (20:47)
[2016-06-22] VITALS (21 sets, daily range): BP systolic 100–134; BP diastolic 52–78; PULSE 86–103; RESP 18–20; TEMP 95–98.6; O2SAT 100
[2016-06-22] MEDS: HYDROCORTISONE SOD SUCCINATE 100 MG VIAL IV PUSH SCH ×4 (01:45→18:00)
[2016-06-22] MEDS: SODIUM CHLOR 0.9% 1000 ML INJ 1,000 ML IV SCH ×3 (03:05→18:18)
[2016-06-22] MEDS: INSULIN ASPART SUPPLEMENTAL SCALE SQ SCH ×4 (03:45→21:45)
[2016-06-22 04:22] LABS: BASOPHIL % 0.1 % (0.0-2.0); EOSINOPHIL % 0.2 % (0.0-4.0); HEMATOCRIT 25.8 % (35.0-46.0); LYMPH % 3.7 % (9.0-44.0); LYMPHOCYTE # 0.6 TH/MM3 (1.0-4.8); MEAN CELL VOLUME 77.8 FL (80.0-100.0); MEAN CORPUSCULAR HEMOGLOBIN 25.1 PG (27.0-34.0); MEAN CORPUSCULAR HGB CONC 32.3 % (32.0-36.0); MONO % 3.3 % (0.0-8.0); NEUT % 92.7 % (16.0-70.0); PLATELET COUNT 103 TH/MM3 (150-450); RED BLOOD COUNT 3.32 MIL/MM3 (4.00-5.30); RED CELL DISTRIBUTION WIDTH 21.4 % (11.6-17.2); WHITE BLOOD COUNT 15.2 TH/MM3 (4.0-11.0)
[2016-06-22 04:27] LABS: HEMO FLAGS AUTO DIFF
[2016-06-22 04:45] LABS: BICARBONATE 19.2 MEQ/L (21.0-32.0); POTASSIUM 3.7 MEQ/L (3.5-5.1)
[2016-06-22] MEDS: AZTREONAM INJ 2,000 MG in SODIUM CHLORIDE 0.9% INJ 100 ML IV SCH ×3 (04:56→21:52)
[2016-06-22] MEDS: DOBUTamine PREMIX DRIP 250 ML IV SCH ×2 (04:56→16:20)
[2016-06-22 06:10] LABS: ACANTHOCYTES OCC (NORMAL); BANDS 67 % (0-6); METAMYELOCYTES 3 % (0-1); NEUTROPHIL # MANUAL DIFF 14.9 TH/MM3 (1.8-7.7); PLATELET ESTIMATE SMEAR LOW (NORMAL); PLATELET MORPHOLOGY NORMAL (NORMAL); POLYS (SEG NEUTROPHILS) 28 % (16-70); SCAN/DIFF FINAL DIFF MANUAL; WBC DIFF SAMPLE 100
--- NOTE | 2016-06-22 07:20 | HHI.CCPN ---
Subjective Remarks/Hospital Course 86 y/o assisted resident with 7 day course of abdominal discomfort treated as outpatient. Presents today with free intraperitoneal air and distention. CT reveals sigmoid colon mass and proximal distention. CT cheat shows consideral bilateral basilar consolidation. Surgical service is evaluating for laparotomy, proximal colostomy. She presented is shock and hypotension and has responded to aggressive fluid resuscitation. 06/20/16 Seen in [facility] upon return from OR following ex lap with subtotal colectomy (transverse, descending, sigmoid colectomy), repair of duodenocolonic fistula, partial omentectomy, ileostomy. Right sided chest tube was placed for pleural effusion. Mass was noted in the liver intraoperatively. There is also suspected right lung mass. Intraoperatively received 3500 crystalloid, 250 albumin, 2 units packed red cells, 2 units FFP. Her and output was 200. EBL 300. She received 3 Amps of sodium bicarbonate in OR. She returns from OR on levophed 20 mcg/min and neosynephrine. 06/21: Continuing septic course after gross peritoneal contamination from perforated colon. 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 06/22: Renal function acceptable despite florid sepsis. Weaning vasopressors but bandemia indicates ongoing septic condition. Objective Vital Signs Date Time Temp Pulse Resp B/P Pulse Ox O2 Delivery O2 Flow Rate FiO2 06/22/16 06:00 91 06/22/16 04:18 100 40 06/22/16 04:00 111/60 134/60 06/22/16 04:00 98.6 18 06/21/16 19:30 Mechanical Ventilator 06/20/16 18:30 10 Intake and Output 06/21/16 06/21/16 06/22/16 08:00 16:00 00:00 Intake Total 4814 ml 1553 ml 1472 ml Output Total 977 ml 988 ml 990 ml Balance 3837 ml 565 ml 482 ml Result Diagram: 06/22/16 0400 06/22/16 0400 Objective Remarks Drips: 0.9 NaCl at 125 L per hour Norepinephrine 20 mics grams per minute (70/h Propofol 10 g per KG per minute Diego-Synephrine 50 mcg/min Dobutamine 5.0 mcg/kg/min Pulse 98, sinus tachycardia on the monitor, r 22, blood pressure 123/46 by left radial art line, sats 97% on mechanical ventilation GENERAL: Elderly female, orotracheally intubated. SKIN: Dry. HEAD: Atraumatic. Normocephalic. EYES: Pupils equal and round, 5 mm and reactive 2 mm bilaterally. ENT: No nasal bleeding or discharge. Mucous membranes pink and moist. NGT currently to gravity, bridled NECK: Trachea midline. Oral intubation. CARDIOVASCULAR: Mildly tachycardic, regular. 2/6 systolic murmur. No JVD. RESPIRATORY: Rales left base. Diminished breath sounds on the right. Right sided chest tube to -20 cm suction without air leak. GASTROINTESTINAL: Abdomen distended, absent bowel sounds. Midline dressing clear drainage. There are 2 LAWRENCE drains on the left. Both drains have cervicitis output. The uppermost drain is at the duodenum/colonic fistula repair. The lower LAWRENCE is in the pelvis. Ileostomy in place with mucosa generally dark pink, some minimal duskiness. VASC: L radial art line in place. L subclavian CVL in place. MUSCULOSKELETAL: Extremities without clubbing, or edema. Digits hands cyanotic. No obvious deformities. NEUROLOGICAL: Opens eyes, Moves 4 limbs, Sedated. A/P Problem List: (1) Peritonitis (acute) generalized ICD Code: K65.0 Status: Acute (2) Bowel perforation ICD Code: K63.1 Status: Acute (3) ARYA (acute kidney injury) ICD Code: N17.9 Status: Acute (4) Septic shock ICD Code: A41.9 Status: Acute (5) Abdominal mass ICD Code: R19.00 Status: Acute (6) Pleural effusion ICD Code: J90 Status: Resolved (7) Respiratory failure, acute ICD Code: J96.00 Status: Acute (8) UTI (urinary tract infection) ICD Code: N39.0 Status: Acute (9) Moderate protein malnutrition ICD Code: E44.0 Status: Chronic (10) Hypocalcemia ICD Code: E83.51 Status: Acute (11) Chronic anemia ICD Code: D64.9 Status: Chronic (12) Coagulopathy ICD Code: D68.9 Status: Acute (13) Liver mass ICD Code: R16.0 Status: Acute (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 RESP: Acute respiratory failure Right pleural effusion R lower lobe lung mass PRVC TV 450 R 16 IT 1 PEEP 5 FiO2 60%, weaning FiO2. Chest tube placed in OR 06/[address] Wilson for large right pleural effusion, suspected malignant, with R lower lobe mass. Chest tube to -20 cm suction Defer SBT until hemodynamically stabilized. CV: Septic shock Sinus tachycardia Cardiomegaly 0.9 NaCl at 125 mL per hour Levophed to maintain MAP greater than 65 Diego-Synephrine currently at 50 g per hour to maintain map greater than 65 Pal Trac for hemodynamic monitoring and resuscitation postoperatively. Trend lactic acid. 4.4 down to 2.7. Add dobutamine, add volume again. NSTEMI, demand ischemia preop. GI: Perforated sigmoid colon with large sigmoid mass Duodeno-colonic fistula Liver mass s/p ex lap with subtotal colectomy, ileostomy, duodeno-colonic fistula repair, partial omentectomy 06/20/16 Dr. Wilson Monitor LAWRENCE output. NGT to LIWS. FEN/RENAL: Acute kidney injury Moderate chronic protein energy malnutrition Hypocalcemia Lentz in place. Monitor intake and output. Monitor electrolytes and replace as indicated. Received calcium chloride 2 gram in OR. Check magnesium. ID: Septic shock secondary to perforated sigmoid mass with feculent intraperitoneal fluid intraoperatively. Leukocytosis UTI, present on admission Continue aztreonam 2 g IV q8, Flagyl 500 mg IV q8 . Received vancomycin upon admission. Fluconazole 200 mg IV daily. 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 secondary to poor nutritional status F/u pathology. Transfused 2 units packed red cells and 2 units FFP in the OR 06/20/16. Postop Hgb is 12. CBC/coags in a.m. ENDO: Monitor bedside glucose every 6 hours and initiate low-dose insulin sliding scale as indicated. PROPH: Protonix 40 mg IV daily for stress ulcer prophylaxis. Bilateral SCDs for DVT prophylaxis. Pharmacologic DVT prophylaxis when appropriate from surgical standpoint ACCESS: Left subclavian central venous line placed in ED by Dr. Yo 06/20 #3. Left radial art line placed in OR 06/20 #3. Overall impression: She is critically ill with septic shock requiring multiple vasopressors, aggressive fluid infusion, and oliguria. Stoma indicates acceptable perfusion as her vasopressor requirements decrease. It will be hard for this elderly woman to survive this illness, particularly in the context of the operative findings. Critical Care 40 mins Problem Qualifiers (1) Abdominal mass: Qualified Code: R19.04 - Left lower quadrant abdominal mass Ru Pitts MD Jun 22, 2016 07:20
[2016-06-22] MEDS: CHLORHEXIDINE 0.12% (ORAL KIT) 15 ML CUP MT SCH ×2 (10:33→21:54)
[2016-06-22] MEDS: SODIUM CHLORIDE 0.9% FLUSH 5 ML FLUSH IVF SCH ×2 (10:34→21:53)
[2016-06-22] MEDS: PROPOFOL 1000 MG/100 ML INJ 100 ML IV SCH (13:04)
--- NOTE | 2016-06-22 17:11 | HHI.PR ---
Subjective Subjective Notes Intubated/Sedated Objective Vitals/I&O Vital Signs Date Time Temp Pulse Resp B/P Pulse Ox O2 Delivery O2 Flow Rate FiO2 06/22/16 16:00 89 06/22/16 15:49 100 40 06/22/16 12:00 97.9 19 113/56 Arterial Line 06/22/16 07:00 Mechanical Ventilator 06/20/16 18:30 10 Labs Laboratory Tests Test 06/21/16 06/22/16 06/22/16 17:20 04:00 13:26 Sodium Level 139 141 Potassium Level 3.9 3.7 Chloride Level 108 110 Carbon Dioxide Level 18.5 19.2 Anion Gap 13 12 Blood Urea Nitrogen 27 24 Creatinine 0.84 0.77 Estimat Glomerular Filtration 64 71 Rate Random Glucose 105 108 Calcium Level 7.1 6.8 Protein Corrected Calcium 9.2 9.0 Total Protein 3.6 3.3 White Blood Count 15.2 Red Blood Count 3.32 Hemoglobin 8.3 Hematocrit 25.8 Mean Corpuscular Volume 77.8 Mean Corpuscular Hemoglobin 25.1 Mean Corpuscular Hemoglobin 32.3 Concent Red Cell Distribution Width 21.4 Platelet Count 103 Mean Platelet Volume 8.7 Neutrophils (%) (Auto) 92.7 Lymphocytes (%) (Auto) 3.7 Monocytes (%) (Auto) 3.3 Eosinophils (%) (Auto) 0.2 Basophils (%) (Auto) 0.1 Neutrophils # (Auto) 14.0 Lymphocytes # (Auto) 0.6 Monocytes # (Auto) 0.5 Eosinophils # (Auto) 0.0 Basophils # (Auto) 0.0 CBC Comment AUTO DIFF Differential Total Cells 100 Counted Neutrophils % (Manual) 28 Band Neutrophils % 67 Lymphocytes % 2 Neutrophils # (Manual) 14.9 Metamyelocytes 3 Differential Comment FINAL DIFF MANUAL Platelet Estimate LOW Platelet Morphology Comment NORMAL Acanthocytes OCC Blood Type O NEGATIVE Crossmatch Leukocyte-Reduced Red Blood Cells Blood Bank Comment Date/Time Procedure Status Source Growth 06/20/16 16:40 Gram Stain - Final Resulted Fluid Peritoneal Fluid 06/20/16 16:40 Body Fluid Culture - Preliminary Resulted Gram Negative Rubin Pseudomonas Species 06/20/16 16:40 Fungal Smear - Final Resulted Fluid Peritoneal Fluid NO FUNGAL ELEMENTS SEEN. 06/20/16 16:40 Fungal Culture Resulted Fluid Peritoneal Fluid Pending 06/20/16 16:40 Acid Fast Stain Received Fluid Peritoneal Fluid Pending 06/20/16 16:40 Mycobacterial Culture Received Fluid Peritoneal Fluid Pending 06/20/16 14:30 Urine Culture - Preliminary Resulted Urine Catheterized Urine Streptococcus Species 06/20/16 14:00 Aerobic Blood Culture - Preliminary Resulted Blood Peripheral NO GROWTH IN 2 DAYS 06/20/16 14:00 Anaerobic Blood Culture - Preliminary Resulted Blood Peripheral NO GROWTH IN 2 DAYS Cardiovascular: Regular Lungs: Clear Abdomen: Other (midline incision with eccomoysis dusky skin; lashawn with moderate drainage; LAWRENCE x 2; stoma dark but viable ) Extremities: Other (generalized edema ) A/P Assessment and Plan 86 year old female with perforated colon cancer, POD2 ex lap; subtotal colectomy ; debulking of sigmoid colon tumor, closure of duodenocolonic fistula; Partial omentectomy; End ileostomy -Patient remains critically ill -Continue to wean pressors -[facility] following -Continue to monitor LAWRENCE drainage -Palliative Care consult Attending Note - Dr. 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 Ok with palliative care The exam, history, and the medical decision-making described in the above note were completed with the assistance of the mid-level provider. I reviewed and agree with the findings presented. I attest that I had a [id number] encounter with the patient on the same day, and personally performed and documented my assessment and findings in the medical record. Mary Noe Jun 22, 2016 17:11 Cameron Wilson MD Jun 23, 2016 19:34
[2016-06-22] MEDS: fentaNYL DRIP 250 ML IV SCH (18:20)
--- NOTE | 2016-06-22 21:01 | PD.CONS ---
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 Corpuscular Hemoglobin 25.1 PG (27.0-34.0) Mean Corpuscular Hemoglobin 32.3 % Concent (32.0-36.0) Red Cell Distribution Width 21.4 % (11.6-17.2) Platelet Count 103 TH/MM3 (150-450) Mean Platelet Volume 8.7 FL (7.0-11.0) Neutrophils (%) (Auto) 92.7 % (16.0-70.0) Lymphocytes (%) (Auto) 3.7 % (9.0-44.0) Monocytes (%) (Auto) 3.3 % (0.0-8.0) Eosinophils (%) (Auto) 0.2 % (0.0-4.0) Basophils (%) (Auto) 0.1 % (0.0-2.0) Neutrophils # (Auto) 14.0 TH/MM3 (1.8-7.7) Lymphocytes # (Auto) 0.6 TH/MM3 (1.0-4.8) Monocytes # (Auto) 0.5 TH/MM3 (0-0.9) Eosinophils # (Auto) 0.0 TH/MM3 (0-0.4) Basophils # (Auto) 0.0 TH/MM3 (0-0.2) CBC Comment AUTO DIFF Differential Total Cells 100 Counted Neutrophils % (Manual) 28 % (16-70) Band Neutrophils % 67 % (0-6) Lymphocytes % 2 % (9-44) Neutrophils # (Manual) 14.9 TH/MM3 (1.8-7.7) Metamyelocytes 3 % (0-1) Differential Comment FINAL DIFF MANUAL Platelet Estimate LOW (NORMAL) Platelet Morphology Comment NORMAL (NORMAL) Acanthocytes OCC (NORMAL) Blood Type O NEGATIVE Crossmatch Leukocyte-Reduced Red Blood Cells Blood Bank Comment . Result Diagram: 06/22/16 0400 06/22/16 0400 Microbiology Microbiology Date/Time Procedure Status Source Growth 06/20/16 13:50 Aerobic Blood Culture - Preliminary Resulted Blood Peripheral NO GROWTH IN 2 DAYS 06/20/16 13:50 Anaerobic Blood Culture - Preliminary Resulted Blood Peripheral NO GROWTH IN 2 DAYS 06/20/16 14:00 Aerobic Blood Culture - Preliminary Resulted Blood Peripheral NO GROWTH IN 2 DAYS 06/20/16 14:00 Anaerobic Blood Culture - Preliminary Resulted Blood Peripheral NO GROWTH IN 2 DAYS 06/20/16 14:30 Urine Culture - Preliminary Resulted Urine Catheterized Urine Streptococcus Species 06/20/16 16:40 Gram Stain - Final Resulted Fluid Peritoneal Fluid 06/20/16 16:40 Body Fluid Culture - Preliminary Resulted Gram Negative Rubin Pseudomonas Species 06/20/16 16:40 Acid Fast Stain Received Fluid Peritoneal Fluid Pending 06/20/16 16:40 Mycobacterial Culture Received Fluid Peritoneal Fluid Pending 06/20/16 16:40 Fungal Smear - Final Resulted Fluid Peritoneal Fluid NO FUNGAL ELEMENTS SEEN. 06/20/16 16:40 Fungal Culture Resulted Fluid Peritoneal Fluid Pending Imaging Last Impressions Chest X-Ray 06/20/16 1341 Signed Impressions: Service Date/Time: Monday, June 20, 2016 13:58 - CONCLUSION: Appropriate positioning of the central line. Large amount of free air identified under the diaphragm. Right-sided pleural fluid. Fabiola Griffiths MD Head CT 06/20/16 0000 Signed Impressions: Service Date/Time: Monday, June 20, 2016 13:47 - CONCLUSION: No acute disease. Fabiola Griffiths MD Chest CT 06/20/16 0000 Signed Impressions: Service Date/Time: Monday, June 20, 2016 13:51 - CONCLUSION: Large right-sided pleural effusion and overlying bilateral basilar atelectasis. Cardiomegaly with evidence of congestive heart failure. The nodule identified in the right lower lung is concerning for possible metastatic disease given the abnormal findings identified in the colon. Large amount of free air identified under the diaphragm and free fluid. The referring team is aware of these findings.. Fabiola Griffiths MD Abdomen/Pelvis CT 06/20/16 0000 Signed Impressions: Service Date/Time: Monday, June 20, 2016 13:51 - CONCLUSION: There is a large irregular mass involving the descending colon with tethering and fistulization with the adjacent duodenum and causing obstruction within the left kidney. There is a large amount of free air identified within the abdomen and pelvis consistent with bowel perforation. There is ascites and a large right-sided pleural effusion. The nodule identified within the right lung base is concerning for metastatic disease. Fabiola Griffiths MD . Procedures * Arterial line placement * Central line placement * Exploratory laparotomy * Subtotal colectomy * Debulking of a sigmoid colon tumor * Closure of the duodenum no colonic fistula * Partial omentectomy * End ileostomy Dr. 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 . Patient/Family Conference Present at Family Conference: Daughter and granddaughter. . Family Conference Time (mins): 40 Family Conference Location: Telephone Issues Discussed: * Palliative care role, purpose, approach * Additional medical, psychosocial, and spiritual history * Patients general health, functional status, and cognitive changes in the months leading up to the current hospitalization * Family understanding of the current medical problems * Family understanding of prognosis * Patients goals of care as best understood from conversations and/or values * Current medical treatment options and benefits/burdens of those options * Questions answered to the best of my ability * Palliative care contact information provided . Assessment and Plan Disease Oriented Problem List: (1) Bowel perforation (2) Peritonitis (acute) generalized (3) Severe sepsis with acute organ dysfunction (4) Septic shock (5) Respiratory failure, acute (6) Pleural effusion (7) Lung metastases (8) Abdominal mass Comment: Probable malignancy Symptom Scale: (1) Pain 0-10 Scale: Unable to quantify Comment: Patient was complaining of abdominal pain when she was still verbal. Prehospitalization pain syndromes included tendinitis, bursitis, carpal tunnel, and some neuropathy. Other sources of pain here include postoperative pain, prolonged bedbound status, chest tube, Lentz catheter, vascular access lines, etc. Patient has a fentanyl drip ordered. .. (2) Dyspnea 0-10 Scale: Unable to quantify Comment: Dyspnea currently managed via ventilator. Patient with pleural effusion and possible pulmonary metastasis. (3) Encephalopathy 0-10 Scale: Unable to quantify Comment: She is apparently moving extremities when on sedation vacation. Daughter reports earlier today she was following some commands. . Pertinent Non-Medical Issues Psychosocial: Had been living independently up until hospitalization in May. Has daughter and granddaughter who live locally. Spiritual: Reason of [employer] tradition. Currently a member of the [employer]. Would appreciate manager express visits. Legal: No known living will. A designation of health care surrogate is on the chart dated 04/26/16. Patient's daughter Silvina Carolina is the surrogate. Ethical issues impacting care: Patient is incapacitated to make her own health care decisions and is not expected to regain capacity. . Important Contacts louisewilbertojulia Agarwal (daughter and health care surrogate) [phone] .. Prognosis This 86-year-old female is currently critically ill in the surgical intensive care unit. She has just undergone major surgery. She had extensive peritonitis and septic shock. Should she be able to survive the intensive care unit she has what appears to be extensive metastatic cancer of uncertain primary. She would not be a candidate for aggressive anticancer treatments. It is still questionable whether she will be able to survive the hospitalization. Life expectancy and the best of circumstances would probably be weeks to months should she managed to rally here. She would be an appropriate candidate for hospice services at such time that family feels it's time to transition to "comfort measures only." . Code Status: Full Code (the health care surrogate wants the patient to remain FULL CODE until the patient's grandson arrived from out of town on 06/25/16.) Plan == CODE STATUS: FULL CODE -- the health care surrogate wants the patient to remain full code until the patient's grandson arrives on 06/25/16. == Decision-making: The patient is incapacitated to make her own health care decisions. She is not expected to regain capacity. The patient's designated health care surrogate is her Dayday Agarwal. == Goals of medical treatment: The health care surrogate seems well aware of how critically ill patient is an that could occur at any time. Nevertheless, she wants the patient's CODE STATUS to remain "full code" until the patient's grandson is able to arrive on 06/25/16. Health care surrogate believes the family will meet together on that day and make further determinations regarding goals of medical treatment. == Pain: Sources of pain include recent abdominal surgery; prolonged bedbound status; chest tube; vascular access line; Lentz catheter; orotracheal intubation. Patient currently has orders for a fentanyl drip. This appears to be adequate. No further recommendations at this time == Dyspnea: Patient has a right sided pleural effusion with chest tube in place. Dyspnea is currently managed her ventilator management. No further recommendations at this time. == Encephalopathy: This is probably multifactorial. Patient is critically ill and is in septic shock. It remains uncertain if patient will become cognitively clear if we are able to be the infection and bring the pressures up. Treating the underlying disease is our best way of addressing encephalopathy. No further recommendations at this time. == Palliative care contact information was provided to the health care surrogate. I will make myself available for family discussions. == Palliative care will continue to follow the patient to assist with symptom management and to further clarify goals of medical treatment as the clinical course evolves. . Time Spent Total Floor Time (mins): 90 (Total floor time including chart review; patient exam; discussion with vice president planning; collaboration with primary nurse; above- referenced phone conversation with both the patient's daughter and granddaughter ; and documentation.) Face to Face Time (mins): 10 >50% Counseling/Coord of Care: Yes Thank you for the opportunity to participate in the care of Ms. Reina. . Attestation To help prompt me to consider important information that might be impacting today's encounter and assessment, information from prior notes written by myself or my colleagues may have been "brought forward" into today's note. My signature on this note, however, is an attestation that I personally performed the exam, history, and/or decision-making noted today, and, unless otherwise indicated, the interactions with patient, family, and staff as well as the review of records all occurred today. I also attest that the listed assessment and stated plan reflect my best clinical judgment today based on the combination of historical information, prior notes, and today's exam/ interactions. When time spent is documented, it refers only to time spent today by the signer, or if indicated, combined time spent today by collaborating physician/nurse practitioner. . Dakota Chacon MD Jun 22, 2016 21:01
[2016-06-22] MEDS: PANTOPRAZOLE SODIUM 40 MG VIAL IV SCH (21:52)
[2016-06-22] MEDS: NOREPINEPHRINE-DEXTROSE DRIP 250 ML IV SCH (21:52)
[2016-06-22] MEDS: FLUCONAZOLE 200 MG PREMIX BAG 100 ML IV SCH (21:53)
[2016-06-23] VITALS (18 sets, daily range): BP systolic 93–107; BP diastolic 48–59; PULSE 81–95; RESP 18; TEMP 94.5–97.9; O2SAT 93–100
[2016-06-23] MEDS: HYDROCORTISONE SOD SUCCINATE 100 MG VIAL IV PUSH SCH ×4 (00:03→17:45)
[2016-06-23] MEDS: VASOPRESSIN INJ 40 UNITS in DEXTROSE 5% IN WATER 100ML INJ 98 ML IV SCH ×4 (00:03→23:25)
[2016-06-23] MEDS: DOBUTamine PREMIX DRIP 250 ML IV SCH ×2 (01:36→14:46)
[2016-06-23] MEDS: SODIUM CHLOR 0.9% 1000 ML INJ 1,000 ML IV SCH ×3 (01:37→18:07)
[2016-06-23 03:30] LABS: HEMATOCRIT 28.1 % (35.0-46.0); MEAN CELL VOLUME 76.8 FL (80.0-100.0); MEAN CORPUSCULAR HEMOGLOBIN 25.3 PG (27.0-34.0); MEAN CORPUSCULAR HGB CONC 32.9 % (32.0-36.0); PLATELET COUNT 88 TH/MM3 (150-450); RED BLOOD COUNT 3.65 MIL/MM3 (4.00-5.30); RED CELL DISTRIBUTION WIDTH 19.6 % (11.6-17.2)
[2016-06-23 03:31] LABS: AUTOMATED NEUTROPHIL # 15.8 TH/MM3 (1.8-7.7); BASOPHIL % 0.1 % (0.0-2.0); LYMPH % 2.6 % (9.0-44.0); LYMPHOCYTE # 0.4 TH/MM3 (1.0-4.8); MONO % 4.4 % (0.0-8.0); NEUT % 92.9 % (16.0-70.0)
[2016-06-23 03:36] LABS: HEMO FLAGS AUTO DIFF
[2016-06-23] MEDS: INSULIN ASPART SUPPLEMENTAL SCALE SQ SCH ×4 (03:45→21:24)
[2016-06-23 04:05] LABS: BICARBONATE 18.7 MEQ/L (21.0-32.0)
[2016-06-23 04:31] LABS: CALCIUM-PROTEIN CORRECTED 8.5 MG/DL (8.5-10.1)
[2016-06-23] MEDS: AZTREONAM INJ 2,000 MG in SODIUM CHLORIDE 0.9% INJ 100 ML IV SCH ×3 (05:45→22:45)
[2016-06-23] MEDS ORDERED: MAGNESIUM OXIDE 400 MG TAB PO PRN (06:30)
[2016-06-23] MEDS ORDERED: POTASSIUM PHOSPHATE MONOBASIC 500 MG TAB PO/TUBE PRN (06:30)
[2016-06-23] MEDS ORDERED: POTASSIUM PHOSPHATE MONOBASIC 500 MG TAB PO PRN (06:30)
[2016-06-23] MEDS ORDERED: MAGNESIUM SULFATE INJ 2 GM in SODIUM CHLORIDE 0.9% INJ 96 ML IV PRN (06:30)
[2016-06-23] MEDS ORDERED: POTASSIUM CHLOR 40 MEQ PREMIX 100 ML IV PRN (06:30)
[2016-06-23] MEDS ORDERED: SODIUM PHOSPHATE INJ 30 MMOL in SODIUM CHLOR 0.9% 250 ML INJ 240 ML IV PRN (06:30)
[2016-06-23] MEDS ORDERED: POTASSIUM PHOSPHATE INJ 30 MMOL in SODIUM CHLOR 0.9% 250 ML INJ 250 ML IV PRN (06:30)
[2016-06-23] MEDS ORDERED: MAGNESIUM SULFATE INJ 4 GM in SODIUM CHLORIDE 0.9% INJ 92 ML IV PRN (06:30)
[2016-06-23] MEDS ORDERED: POTASSIUM CHLOR 20 MEQ PREMIX 100 ML IV PRN ×2 (06:30)
--- NOTE | 2016-06-23 06:45 | HHI.CCPN ---
Subjective Remarks/Hospital Course 86 y/o halfway resident with 7 day course of abdominal discomfort treated as outpatient. Presents today with free intraperitoneal air and distention. CT reveals sigmoid colon mass and proximal distention. CT cheat shows consideral bilateral basilar consolidation. Surgical service is evaluating for laparotomy, proximal colostomy. She presented is shock and hypotension and has responded to aggressive fluid resuscitation. 06/20/16 Seen in [facility] upon return from OR following ex lap with subtotal colectomy (transverse, descending, sigmoid colectomy), repair of duodenocolonic fistula, partial omentectomy, ileostomy. Right sided chest tube was placed for pleural effusion. Mass was noted in the liver intraoperatively. There is also suspected right lung mass. Intraoperatively received 3500 crystalloid, 250 albumin, 2 units packed red cells, 2 units FFP. Her and output was 200. EBL 300. She received 3 Amps of sodium bicarbonate in OR. She returns from OR on levophed 20 mcg/min and neosynephrine. 06/21: Continuing septic course after gross peritoneal contamination from perforated colon. 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 06/22: Renal function acceptable despite florid sepsis. Weaning vasopressors but bandemia indicates ongoing septic condition. 06/23: She acts septic with ongoing vasopressor requirements. It will be hard to get her extubated with the amount of pain she has; any movement has her grimacing. We don't have Pseudomonas coverage but her numerous allergies pretty much would require an aminoglycoside. Objective Vital Signs Date Time Temp Pulse Resp B/P Pulse Ox O2 Delivery O2 Flow Rate FiO2 06/23/16 06:00 92 06/23/16 04:30 100 40 06/23/16 04:00 96.8 18 107/55 06/22/16 19:30 Mechanical Ventilator 06/20/16 18:30 10 Intake and Output 06/22/16 06/22/16 06/23/16 08:00 16:00 00:00 Intake Total 1813 ml 2944 ml 1894 ml Output Total 745 ml 755 ml 670 ml Balance 1068 ml 2189 ml 1224 ml Result Diagram: 06/23/16 0315 06/23/16 0315 Objective Remarks Drips: 0.9 NaCl at 125 L per hour Norepinephrine 6 mics grams per minute (70/h Propofol 10 g per KG per minute Dobutamine 5.0 mcg/kg/min Vasopressin 0.04 Pulse 96, sinus tachycardia on the monitor, r 24, blood pressure 118/66 by left radial art line, sats 96% on mechanical ventilation GENERAL: Elderly, frail female, orotracheally intubated. SKIN: Dry. HEAD: Atraumatic. Normocephalic. EYES: Pupils equal and round, 3, reactive ENT: No nasal bleeding or discharge. Mucous membranes pink and moist. NGT currently to gravity, bridled NECK: Trachea midline. Oral intubation. CARDIOVASCULAR: Mildly tachycardic, regular. 2/6 systolic murmur. No JVD. RESPIRATORY: Rales left base. Diminished breath sounds on the right. Right sided chest tube to -20 cm suction without air leak. GASTROINTESTINAL: Abdomen mildly distended, absent bowel sounds. Midline dressing. There are 2 LAWRENCE drains on the left. The uppermost drain is at the duodenum/colonic fistula repair. The lower LAWRENCE is in the pelvis. Ileostomy in place with mucosa generally dark pink, some minimal duskiness. VASC: L radial art line in place. L subclavian CVL in place. MUSCULOSKELETAL: Extremities without clubbing, or edema. Digits hands cyanotic. No obvious deformities. NEUROLOGICAL: Opens eyes, Moves 4 limbs, Sedated. Appears in pain with any movement. A/P Problem List: (1) Septic shock ICD Code: A41.9 Status: Acute (2) Peritonitis (acute) generalized ICD Code: K65.0 Status: Acute (3) Bowel perforation ICD Code: K63.1 Status: Acute (4) ARYA (acute kidney injury) ICD Code: N17.9 Status: Acute (5) Abdominal mass ICD Code: R19.00 Status: Acute (6) Pleural effusion ICD Code: J90 Status: Resolved (7) Respiratory failure, acute ICD Code: J96.00 Status: Acute (8) UTI (urinary tract infection) ICD Code: N39.0 Status: Acute (9) Moderate protein malnutrition ICD Code: E44.0 Status: Chronic (10) Hypocalcemia ICD Code: E83.51 Status: Acute (11) Chronic anemia ICD Code: D64.9 Status: Chronic (12) Coagulopathy ICD Code: D68.9 Status: Acute (13) Liver mass ICD Code: R16.0 Status: Acute (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 Increase propofol. RESP: Acute respiratory failure Right pleural effusion R lower lobe lung mass PRVC TV 450 R 16 IT 1 PEEP 5 FiO2 60%, weaning FiO2. Chest tube placed in OR 06/[address] Wilson for large right pleural effusion, suspected malignant, with R lower lobe mass. Chest tube to -20 cm suction Defer SBT until hemodynamically stabilized. CV: Septic shock Sinus tachycardia Cardiomegaly 0.9 NaCl at 125 mL per hour Levophed to maintain MAP greater than 65 Diego-Synephrine currently at 50 g per hour to maintain map greater than 65 Pal Trac for hemodynamic monitoring and resuscitation postoperatively. Trend lactic acid. 4.4 down to 2.7. Add dobutamine, add volume again. NSTEMI, demand ischemia preop. Added levophed for recurrent hypotension. GI: Perforated sigmoid colon with large sigmoid mass Duodeno-colonic fistula Liver mass s/p ex lap with subtotal colectomy, ileostomy, duodeno-colonic fistula repair, partial omentectomy 06/20/16 Dr. Wilson Monitor LAWRENCE output. NGT to LIWS. FEN/RENAL: Acute kidney injury Moderate chronic protein energy malnutrition Hypocalcemia Lentz in place. Monitor intake and output. Monitor electrolytes and replace as indicated. Received calcium chloride 2 gram in OR. Prealbumin. ID: Septic shock secondary to perforated sigmoid mass with feculent intraperitoneal fluid intraoperatively. Leukocytosis UTI, present on admission Continue aztreonam 2 g IV q8, Flagyl 500 mg IV q8 . Received vancomycin upon admission. Fluconazole 200 mg IV daily. 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 secondary to poor nutritional status F/u pathology. Transfused 2 units packed red cells and 2 units FFP in the OR 06/20/16. Postop Hgb is 12. CBC/coags in a.m. ENDO: Monitor bedside glucose every 6 hours and initiate low-dose insulin sliding scale as indicated. PROPH: Protonix 40 mg IV daily for stress ulcer prophylaxis. Bilateral SCDs for DVT prophylaxis. Pharmacologic DVT prophylaxis when appropriate from surgical standpoint ACCESS: Left subclavian central venous line placed in ED by Dr. Yo 06/20 #4. Left radial art line placed in OR 06/20 #4. Overall impression: She remains critically ill with septic shock requiring multiple vasopressors, aggressive fluid infusion. Stoma indicates acceptable perfusion as her vasopressor requirements increase again. It will be hard for this elderly woman to survive this illness, particularly in the context of the operative findings. Family is gathering; care plan soon. Critical Care 39 mins Problem Qualifiers (1) Abdominal mass: Qualified Code: R19.04 - Left lower quadrant abdominal mass Ru Pitts MD Jun 23, 2016 06:45
[2016-06-23] MEDS: POTASSIUM CHLOR 40 MEQ PREMIX 100 ML IV PRN ×2 (06:48→10:16)
[2016-06-23 06:50] LABS: BANDS 18 % (0-6); METAMYELOCYTES 1 % (0-1); NEUTROPHIL # MANUAL DIFF 16.3 TH/MM3 (1.8-7.7); POLYS (SEG NEUTROPHILS) 77 % (16-70); WBC DIFF SAMPLE 100
[2016-06-23 06:52] LABS: BURR CELLS 1+ (NORMAL); HELMET CELLS OCC (NORMAL); KERATOCYTES OCC (NORMAL); PLATELET ESTIMATE SMEAR LOW (NORMAL); PLATELET MORPHOLOGY NORMAL (NORMAL); SCAN/DIFF FINAL DIFF MANUAL
[2016-06-23] MEDS: CHLORHEXIDINE 0.12% (ORAL KIT) 15 ML CUP MT SCH ×2 (08:00→20:25)
--- NOTE | 2016-06-23 08:21 | HHI.HCPN ---
Patient's daughter (the health care surrogate) phoned me this AM. She let me know she wanted to change code status so her mother would not be subject to chest compressions and shock. She still wants aggressive care short of resuscitation as she is hoping and praying that her mother will remain alive long enough so the patient's grandson can visit and say his "goodbyes." He is scheduled to arrive now on Wed06/24/16. Dakota Chacon MD Jun 23, 2016 08:21
[2016-06-23] MEDS: SODIUM CHLORIDE 0.9% FLUSH 5 ML FLUSH IVF SCH ×2 (09:00→20:25)
[2016-06-23] MEDS: PROPOFOL 1000 MG/100 ML INJ 100 ML IV SCH ×2 (09:58→20:25)
--- NOTE | 2016-06-23 10:25 | MP ---
cc: CAMERON WILSON M.D. DATE OF SURGERY 06/20/2016 PROCEDURE Exploratory laparotomy with subtotal colectomy and ileostomy, partial omentectomy and repair of duodenal colic fistula, right tube thoracostomy placed. PREOPERATIVE DIAGNOSIS Pneumoperitoneum POSTOPERATIVE DIAGNOSIS Pneumoperitoneum secondary to perforated ascending colon. Widely metastatic tumor in retroperitoneum extending from sigmoid colon ANESTHESIA General endotracheal SURGEON Cameron Wilson MD ESTIMATED BLOOD LOSS 300 mL FLUIDS 3500 ml Crystalloid, 2 units PRBC's, 2 units FFP ANESTHESIA General endotracheal COMPLICATIONS None DRAINS LAWRENCE times two. SPECIMEN Colon to pathology as well as retroperitoneal tumor. FINDINGS A large sigmoid colon cancer causing obstruction invading into the lateral pelvic side wall, retroperitoneum, and duodenum. The patient also had a likely liver lesions by palpation as well and possibly a tumor in the chest. PROCEDURE IN DETAIL The patient was taken to the operating room and placed on the operating table in the supine position after being taken directly from the emergency department where resuscitation had been performed. She underwent general endotracheal anesthesia and had placement of an arterial line by Anesthesia. The undersigned then performed a right tube thoracostomy with a 20-[place] chest tube. The skin was prepped and draped. Time-out was taken confirming the correct patient, site, and procedure to be performed. The incision was made in the skin and a hemostat was used to advance one interspace and enter the right chest cavity. Clear serous fluid was extruded. The chest tube was inserted using a curved Gloria clamp. The tube was secured to the skin with a zero silk suture and connected to a Pleur-Evac. There was no air leak. The wound was dressed with 4x4s and Elastoplast tape. The abdomen was then prepped and draped. Incision was made in the lower midline and carried above the umbilicus. Air and fluid with a large amount of stool was noted. This was cultured and following this, a large amount of stool was cleaned from the abdominal cavity and the abdomen was then preliminarily irrigated to clean some of the gross contamination. When this had been accomplished, a perforation in the ascending colon near the hepatic flexure was noted. At this point, the distal ileum was divided with lashawn and the ascending colon was mobilized. Successive clamping and ligation of blood vessels was accomplished and the very distal ileum, cecum, and ascending colon, as well as the hepatic flexure, which had been mobilized, was taken. A point just proximal to the mid transverse colon was selected and this was divided. This part of the colon was then passed off the table to prevent further contamination. The abdomen was then cleaned out further and a portion of the omentum, which was contaminated and had questionable blood flow, was excised and passed off the table as well. The distal transverse and descending colon appeared to be somewhat discolored, but this was left in for the time being. A small amount of tissue was taken from the retroperitoneum and submitted for specimen analysis. Following this, a loop of intestine of mid jejunum was gently bluntly dissected away from the colon to free it up and prevent this from becoming obstructed. Careful mobilization of the retroperitoneum revealed a duodenal colic fistula. This was dissected free from the surrounding tissues and after freeing up the duodenum further, this was able to be oversewn with interrupted 3-0 silk sutures. When this had been accomplished, the distal transverse and descending colon was noted to be discolored and clearly ischemic. The patient was felt to be at tremendous risk for further intra-abdominal catastrophe and was thus felt to be served by resection of this portion of the colon so as not to have to a return to the operating room. The middle colic vessel was ligated and divided. The splenic flexure was mobilized and the colon divided at the level of the tumor. The colon was able to be mobilized just distal to the tumor and this was stapled off so that the most distal sigmoid colon and rectal stump were excluded from the resection. The transverse and descending colon were then completely removed with successive clamping and ligation and passed off the table. The abdomen was then irrigated with six liters of irrigation and the left and right upper quadrant were examined. Small bleeding points on the liver capsule were cauterized and a small vessel in the omentum in the left upper quadrant was ligated with silk suture. When this had been completed, the duodenum was reexamined and seen to be hemostatic and without leak. Two drains were brought in with one placed into the pelvis and the second in the retroperitoneum near the tumor and the duodenum. Amanda powder was placed into the retroperitoneal area over the tumor and into the left and right upper quadrants. The drains were secured in place with 3-0 nylon sutures. The ileostomy was brought out through separate stab incision in the right lower quadrant to the right midabdomen. This was secured at two points with Vicryl suture and a Juanita ileostomy created after the fascia was closed with #1 PDS suture in a running fashion. The skin was closed loosely with lashawn and Betadine soaked gaudencio were placed between these. The ileostomy was finally matured with 3-0 Vicryl suture. An appliance was placed over this and 4x4s and ABD pads were placed over the midline and 4x4s applied around the drains. The patient remained intubated was taken back to the recovery room in critical condition. Sponge, needle and instrument counts were reported be correct x2. MD JERRY Ramírez/LUIS /9:25 PM /10:16 AM [email or web address]
--- NOTE | 2016-06-23 17:19 | HHI.PR ---
Subjective Subjective Notes Intubated/Sedated Resting comfortably Objective Vitals/I&O Vital Signs Date Time Temp Pulse Resp B/P Pulse Ox O2 Delivery O2 Flow Rate FiO2 06/23/16 17:04 100 40 06/23/16 16:00 96.8 89 18 93/55 06/23/16 07:00 Mechanical Ventilator 06/20/16 18:30 10 Labs Laboratory Tests Test 06/23/16 03:15 White Blood Count 17.0 Red Blood Count 3.65 Hemoglobin 9.2 Hematocrit 28.1 Mean Corpuscular Volume 76.8 Mean Corpuscular Hemoglobin 25.3 Mean Corpuscular Hemoglobin 32.9 Concent Red Cell Distribution Width 19.6 Platelet Count 88 Mean Platelet Volume 9.1 Neutrophils (%) (Auto) 92.9 Lymphocytes (%) (Auto) 2.6 Monocytes (%) (Auto) 4.4 Eosinophils (%) (Auto) 0.0 Basophils (%) (Auto) 0.1 Neutrophils # (Auto) 15.8 Lymphocytes # (Auto) 0.4 Monocytes # (Auto) 0.7 Eosinophils # (Auto) 0.0 Basophils # (Auto) 0.0 CBC Comment AUTO DIFF Differential Total Cells 100 Counted Neutrophils % (Manual) 77 Band Neutrophils % 18 Lymphocytes % 2 Monocytes % 2 Neutrophils # (Manual) 16.3 Metamyelocytes 1 Differential Comment FINAL DIFF MANUAL Platelet Estimate LOW Platelet Morphology Comment NORMAL Helmet Cells OCC Daniel Cells 1+ Keratocytes OCC Sodium Level 143 Potassium Level 3.0 Chloride Level 112 Carbon Dioxide Level 18.7 Anion Gap 12 Blood Urea Nitrogen 24 Creatinine 0.70 Estimat Glomerular Filtration 79 Rate Random Glucose 111 Calcium Level 6.5 Protein Corrected Calcium 8.5 Total Protein 3.4 Date/Time Procedure Status Source Growth 06/20/16 16:40 Gram Stain - Final Complete Fluid Peritoneal Fluid 06/20/16 16:40 Body Fluid Culture - Final Complete Escherichia Coli Pseudomonas Aeruginosa Rosa Albicans 06/20/16 16:40 Fungal Smear - Final Resulted Fluid Peritoneal Fluid NO FUNGAL ELEMENTS SEEN. 06/20/16 16:40 Fungal Culture Resulted Fluid Peritoneal Fluid Pending 06/20/16 16:40 Acid Fast Stain - Final Resulted Fluid Peritoneal Fluid NO ACID FAST BACILLI SEEN 06/20/16 16:40 Mycobacterial Culture Resulted Fluid Peritoneal Fluid Pending 06/20/16 14:30 Urine Culture - Final Complete Urine Catheterized Urine Streptococcus Bovis 06/20/16 14:00 Aerobic Blood Culture - Preliminary Resulted Blood Peripheral NO GROWTH IN 3 DAYS 06/20/16 14:00 Anaerobic Blood Culture - Preliminary Resulted Blood Peripheral NO GROWTH IN 3 DAYS Cardiovascular: Regular Lungs: Clear Abdomen: Other (midline incision; skin surrounding incision is purple; moderate amount of drainage from incision; stoma dark but viable; LAWRENCE x 2 with clear SS drainage ) Extremities: Other (generalized edema ) A/P Assessment and Plan 86 year old female with perforated colon cancer, POD3 ex lap; subtotal colectomy ; debulking of sigmoid colon tumor, closure of duodenocolonic fistula; Partial omentectomy; End ileostomy -Patient remains critically ill -Continue to wean pressors as tolerated -CCM following -Continue to monitor LAWRENCE drainage -Palliative Care consult----patient now a alternative code -Discussed with DION Ochoa at bedside Attending Note - Dr. Wilson Off vasopressin; still intubated and sedated Wound with some drainage present LAWRENCE drains both serosanguinous Pathology pending Discussed with pt's daughter; plan to allow grandson to see patient tomorrow and likely withdraw treatment after this. The exam, history, and the medical decision-making described in the above note were completed with the assistance of the mid-level provider. I reviewed and agree with the findings presented. I attest that I had a [id number] encounter with the patient on the same day, and personally performed and documented my assessment and findings in the medical record. Mary Noe Jun 23, 2016 17:19 Cameron Wilson MD Jun 23, 2016 19:38
[2016-06-23] MEDS: NOREPINEPHRINE-DEXTROSE DRIP 250 ML IV SCH (18:07)
[2016-06-23] MEDS: PANTOPRAZOLE SODIUM 40 MG VIAL IV SCH (20:24)
[2016-06-23 21:03] LABS: BICARBONATE 18.8 MEQ/L (21.0-32.0); MAGNESIUM 1.5 MG/DL (1.5-2.5)
[2016-06-23 21:17] LABS: CALCIUM-PROTEIN CORRECTED 8.6 MG/DL (8.5-10.1)
[2016-06-23] MEDS: FLUCONAZOLE 200 MG PREMIX BAG 100 ML IV SCH (21:26)
[2016-06-24] VITALS (10 sets, daily range): BP systolic 92–112; BP diastolic 52–61; PULSE 80–87; RESP 18–20; TEMP 95.5–97.9; O2SAT 96–99
[2016-06-24] MEDS: HYDROCORTISONE SOD SUCCINATE 100 MG VIAL IV PUSH SCH ×3 (00:09→12:02)
[2016-06-24] MEDS: SODIUM CHLOR 0.9% 1000 ML INJ 1,000 ML IV SCH ×2 (00:09→12:03)
[2016-06-24] MEDS: NOREPINEPHRINE-DEXTROSE DRIP 250 ML IV SCH (03:16)
[2016-06-24] MEDS: DOBUTamine PREMIX DRIP 250 ML IV SCH (03:18)
[2016-06-24] MEDS: fentaNYL DRIP 250 ML IV SCH (03:18)
[2016-06-24] MEDS: INSULIN ASPART SUPPLEMENTAL SCALE SQ SCH ×2 (03:45→09:45)
[2016-06-24] MEDS: PROPOFOL 1000 MG/100 ML INJ 100 ML IV SCH (04:27)
[2016-06-24 05:08] LABS: AUTOMATED NEUTROPHIL # 16.1 TH/MM3 (1.8-7.7); BASOPHIL % 0.1 % (0.0-2.0); HEMATOCRIT 30.3 % (35.0-46.0); LYMPH % 2.3 % (9.0-44.0); LYMPHOCYTE # 0.4 TH/MM3 (1.0-4.8); MEAN CELL VOLUME 78.5 FL (80.0-100.0); MEAN CORPUSCULAR HEMOGLOBIN 25.1 PG (27.0-34.0); MONO % 4.7 % (0.0-8.0); NEUT % 92.9 % (16.0-70.0); PLATELET COUNT 89 TH/MM3 (150-450); RED BLOOD COUNT 3.87 MIL/MM3 (4.00-5.30); RED CELL DISTRIBUTION WIDTH 19.7 % (11.6-17.2); WHITE BLOOD COUNT 17.4 TH/MM3 (4.0-11.0)
[2016-06-24 05:09] LABS: HEMO FLAGS AUTO DIFF
[2016-06-24 05:42] LABS: BICARBONATE 18.9 MEQ/L (21.0-32.0)
[2016-06-24 05:56] LABS: CALCIUM-PROTEIN CORRECTED 8.9 MG/DL (8.5-10.1)
[2016-06-24] MEDS: AZTREONAM INJ 2,000 MG in SODIUM CHLORIDE 0.9% INJ 100 ML IV SCH ×2 (06:04→14:11)
[2016-06-24 06:55] LABS: BURR CELLS 1+ (NORMAL); OVALOCYTES 1+ (NORMAL)
[2016-06-24 06:56] LABS: PLATELET ESTIMATE SMEAR LOW (NORMAL); PLATELET MORPHOLOGY NORMAL (NORMAL); SCAN/DIFF AUTO DIFF CONFIRMED
[2016-06-24] MEDS: CHLORHEXIDINE 0.12% (ORAL KIT) 15 ML CUP MT SCH (08:00)
[2016-06-24] MEDS: SODIUM CHLORIDE 0.9% FLUSH 5 ML FLUSH IVF SCH (09:00)
--- NOTE | 2016-06-24 10:32 | HHI.PR ---
Subjective Subjective Notes Intubated/Sedated Objective Vitals/I&O Vital Signs Date Time Temp Pulse Resp B/P Pulse Ox O2 Delivery O2 Flow Rate FiO2 06/24/16 07:51 97 40 06/24/16 07:00 Mechanical Ventilator 06/24/16 04:00 96.3 82 18 112/61 06/20/16 18:30 10 Labs Laboratory Tests Test 06/23/16 06/24/16 20:20 05:00 Sodium Level 140 142 Potassium Level 4.0 4.0 Chloride Level 112 114 Carbon Dioxide Level 18.8 18.9 Anion Gap 9 9 Blood Urea Nitrogen 23 23 Creatinine 0.69 0.67 Estimat Glomerular Filtration 80 83 Rate Random Glucose 117 124 Calcium Level 6.7 6.9 Protein Corrected Calcium 8.6 8.9 Magnesium Level 1.5 Total Protein 3.7 3.6 White Blood Count 17.4 Red Blood Count 3.87 Hemoglobin 9.7 Hematocrit 30.3 Mean Corpuscular Volume 78.5 Mean Corpuscular Hemoglobin 25.1 Mean Corpuscular Hemoglobin 32.0 Concent Red Cell Distribution Width 19.7 Platelet Count 89 Mean Platelet Volume 8.7 Neutrophils (%) (Auto) 92.9 Lymphocytes (%) (Auto) 2.3 Monocytes (%) (Auto) 4.7 Eosinophils (%) (Auto) 0.0 Basophils (%) (Auto) 0.1 Neutrophils # (Auto) 16.1 Lymphocytes # (Auto) 0.4 Monocytes # (Auto) 0.8 Eosinophils # (Auto) 0.0 Basophils # (Auto) 0.0 CBC Comment AUTO DIFF Differential Comment AUTO DIFF CONFIRMED Platelet Estimate LOW Platelet Morphology Comment NORMAL Ovalocytes 1+ [place] Cells 1+ Date/Time Procedure Status Source Growth 06/20/16 16:40 Gram Stain - Final Complete Fluid Peritoneal Fluid 06/20/16 16:40 Body Fluid Culture - Final Complete Escherichia Coli Pseudomonas Aeruginosa Rosa Albicans 06/20/16 16:40 Fungal Smear - Final Resulted Fluid Peritoneal Fluid NO FUNGAL ELEMENTS SEEN. 06/20/16 16:40 Fungal Culture Resulted Fluid Peritoneal Fluid Pending 06/20/16 16:40 Acid Fast Stain - Final Resulted Fluid Peritoneal Fluid NO ACID FAST BACILLI SEEN 06/20/16 16:40 Mycobacterial Culture Resulted Fluid Peritoneal Fluid Pending 06/20/16 14:30 Urine Culture - Final Complete Urine Catheterized Urine Streptococcus Bovis 06/20/16 14:00 Aerobic Blood Culture - Preliminary Resulted Blood Peripheral NO GROWTH IN 3 DAYS 06/20/16 14:00 Anaerobic Blood Culture - Preliminary Resulted Blood Peripheral NO GROWTH IN 3 DAYS Cardiovascular: Regular Lungs: Clear Abdomen: Other (midline incision; skin surrounding incision is purple; moderate amount of drainage from incision; stoma dark but viable; LAWRENCE x 2 with clear SS drainage) Extremities: Other (generalized edema ) A/P Assessment and Plan 86 year old female with perforated colon cancer, POD4 ex lap; subtotal colectomy ; debulking of sigmoid colon tumor, closure of duodenocolonic fistula; Partial omentectomy; End ileostomy -Patient remain critically ill -Continue to wean pressors as tolerated -CCM following -Continue to monitor LAWRENCE drainage amount and color -Palliative Care consult----patient now a alternative code -Awaiting the arrival of grandson before withdrawal of care -Discussed with DION Rasheed at bedside Attending Note - Dr. Wilson Discussed with family; grandson arrived. Withdraw care today, to stop futile care, with no reasonable expectation of any quality of life. The exam, history, and the medical decision-making described in the above note were completed with the assistance of the mid-level provider. I reviewed and agree with the findings presented. I attest that I had a [id number] encounter with the patient on the same day, and personally performed and documented my assessment and findings in the medical record. Mary Noe Jun 24, 2016 10:32 Cameron Wilson MD Jun 25, 2016 15:05
--- NOTE | 2016-06-24 13:36 | HHI.CCPN ---
Subjective Remarks/Hospital Course 86 y/o long-term resident with 7 day course of abdominal discomfort treated as outpatient. Presents today with free intraperitoneal air and distention. CT reveals sigmoid colon mass and proximal distention. CT cheat shows consideral bilateral basilar consolidation. Surgical service is evaluating for laparotomy, proximal colostomy. She presented is shock and hypotension and has responded to aggressive fluid resuscitation. 06/20/16 Seen in [facility] upon return from OR following ex lap with subtotal colectomy (transverse, descending, sigmoid colectomy), repair of duodenocolonic fistula, partial omentectomy, ileostomy. Right sided chest tube was placed for pleural effusion. Mass was noted in the liver intraoperatively. There is also suspected right lung mass. Intraoperatively received 3500 crystalloid, 250 albumin, 2 units packed red cells, 2 units FFP. Her and output was 200. EBL 300. She received 3 Amps of sodium bicarbonate in OR. She returns from OR on levophed 20 mcg/min and neosynephrine. 06/21: Continuing septic course after gross peritoneal contamination from perforated colon. 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 06/22: Renal function acceptable despite florid sepsis. Weaning vasopressors but bandemia indicates ongoing septic condition. 06/23: She acts septic with ongoing vasopressor requirements. It will be hard to get her extubated with the amount of pain she has; any movement has her grimacing. We don't have Pseudomonas coverage but her numerous allergies pretty much would require an aminoglycoside. 06/24: Ongoing septic course. Nutritional state decimated by chronic disease. Family planning for withdrawal. Update: Family gathered and requested withdrawal of artificial support as planned earlier. All participants in agreement for planned withdrawal. Sedation and analgesia medications requested by family to avoid any discomfort. We will comply with their wishes. Objective Vital Signs Date Time Temp Pulse Resp B/P Pulse Ox O2 Delivery O2 Flow Rate FiO2 06/24/16 12:00 81 06/24/16 12:00 97.9 20 92/52 98 06/24/16 12:00 40 06/24/16 07:00 Mechanical Ventilator 06/20/16 18:30 10 Intake and Output 06/23/16 06/23/16 06/23/16 07:59 15:59 23:59 Intake Total 1808 ml 2011 ml 1715 ml Output Total 480 ml 625 ml 480 ml Balance 1328 ml 1386 ml 1235 ml Result Diagram: 06/24/16 0500 06/24/16 0500 Objective Remarks Drips: 0.9 NaCl at 125 L per hour Norepinephrine 6 mics grams per minute (70/h Propofol 10 g per KG per minute Dobutamine 5.0 mcg/kg/min Vasopressin 0.04 Pulse 96, sinus tachycardia on the monitor, r 24, blood pressure 118/66 by left radial art line, sats 96% on mechanical ventilation GENERAL: Elderly, frail female, orotracheally intubated. SKIN: Dry. HEAD: Atraumatic. Normocephalic. EYES: Pupils equal and round, 3, reactive ENT: No nasal bleeding or discharge. Mucous membranes pink and moist. NGT currently to gravity, bridled NECK: Trachea midline. Oral intubation. CARDIOVASCULAR: Mildly tachycardic, regular. 2/6 systolic murmur. No JVD. RESPIRATORY: Rales left base. Diminished breath sounds on the right. Right sided chest tube to -20 cm suction without air leak. GASTROINTESTINAL: Abdomen mildly distended, absent bowel sounds. Midline dressing. There are 2 LAWRENCE drains on the left. The uppermost drain is at the duodenum/colonic fistula repair. The lower LAWRENCE is in the pelvis. Ileostomy in place with mucosa generally dark pink, some minimal duskiness. VASC: L radial art line in place. L subclavian CVL in place. MUSCULOSKELETAL: Extremities without clubbing, or edema. Digits hands cyanotic. No obvious deformities. NEUROLOGICAL: Opens eyes, Moves 4 limbs, Sedated. Appears in pain with any movement. A/P Problem List: (1) Septic shock ICD Code: A41.9 Status: Acute (2) Peritonitis (acute) generalized ICD Code: K65.0 Status: Acute (3) Bowel perforation ICD Code: K63.1 Status: Acute (4) ARYA (acute kidney injury) ICD Code: N17.9 Status: Acute (5) Abdominal mass ICD Code: R19.00 Status: Acute (6) Pleural effusion ICD Code: J90 Status: Resolved (7) Respiratory failure, acute ICD Code: J96.00 Status: Acute (8) UTI (urinary tract infection) ICD Code: N39.0 Status: Acute (9) Moderate protein malnutrition ICD Code: E44.0 Status: Chronic (10) Hypocalcemia ICD Code: E83.51 Status: Acute (11) Chronic anemia ICD Code: D64.9 Status: Chronic (12) Coagulopathy ICD Code: D68.9 Status: Acute (13) Liver mass ICD Code: R16.0 Status: Acute (14) 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 Increase propofol. RESP: Acute respiratory failure Right pleural effusion R lower lobe lung mass PRVC TV 450 R 16 IT 1 PEEP 5 FiO2 60%, weaning FiO2. Chest tube placed in OR 06/[address] Wilson for large right pleural effusion, suspected malignant, with R lower lobe mass. Chest tube to -20 cm suction Defer SBT until hemodynamically stabilized. CV: Septic shock Sinus tachycardia Cardiomegaly 0.9 NaCl at 125 mL per hour Levophed to maintain MAP greater than 65 Diego-Synephrine currently at 50 g per hour to maintain map greater than 65 Pal Trac for hemodynamic monitoring and resuscitation postoperatively. Trend lactic acid. 4.4 down to 2.7. Add dobutamine, add volume again. NSTEMI, demand ischemia preop. Added levophed for recurrent hypotension. GI: Perforated sigmoid colon with large sigmoid mass Duodeno-colonic fistula Liver mass s/p ex lap with subtotal colectomy, ileostomy, duodeno-colonic fistula repair, partial omentectomy 06/20/16 Dr. Wilson Monitor LAWRENCE output. NGT to LIWS. FEN/RENAL: Acute kidney injury Moderate chronic protein energy malnutrition Hypocalcemia Lentz in place. Monitor intake and output. Monitor electrolytes and replace as indicated. Received calcium chloride 2 gram in OR. Prealbumin. ID: Septic shock secondary to perforated sigmoid mass with feculent intraperitoneal fluid intraoperatively. Leukocytosis UTI, present on admission Continue aztreonam 2 g IV q8, Flagyl 500 mg IV q8 . Received vancomycin upon admission. Fluconazole 200 mg IV daily. 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 secondary to poor nutritional status F/u pathology. Transfused 2 units packed red cells and 2 units FFP in the OR 06/20/16. Postop Hgb is 12. CBC/coags in a.m. ENDO: Monitor bedside glucose every 6 hours and initiate low-dose insulin sliding scale as indicated. PROPH: Protonix 40 mg IV daily for stress ulcer prophylaxis. Bilateral SCDs for DVT prophylaxis. Pharmacologic DVT prophylaxis when appropriate from surgical standpoint ACCESS: Left subclavian central venous line placed in ED by Dr. Yo 06/20 #4. Left radial art line placed in OR 06/20 #4. Overall impression: She remains critically ill with septic shock requiring multiple vasopressors, aggressive fluid infusion. Stoma indicates acceptable perfusion as her vasopressor requirements increase again. It will be hard for this elderly woman to survive this illness, particularly in the context of the operative findings. Family is gathering; care plan soon. We are assuring that she is comfortable. Problem Qualifiers (1) Abdominal mass: Qualified Code: R19.04 - Left lower quadrant abdominal mass Ru Pitts MD Jun 24, 2016 13:36
[2016-06-24] MEDS ORDERED: LORazepam 2 MG/ML VIAL ONE (16:53)
[2016-06-24] MEDS ORDERED: MORPHINE SULFATE 10 MG/ML INJ IV PUSH ONE (17:15)
[2016-06-24] MEDS ORDERED: MORPHINE SULFATE IV PUSH ONE (17:15)
[2016-06-24] MEDS ORDERED: [UNRECOGNIZED DRUG - OTHER] IV PUSH ONE (17:15)
[2016-06-24] MEDS ORDERED: LORazepam 2 MG/ML VIAL IV ONE ×2 (17:15)
[2016-06-24] MEDS ORDERED: [UNRECOGNIZED DRUG - OTHER] IV PUSH PRN (17:30)
[2016-06-24] MEDS ORDERED: LORazepam 2 MG/ML VIAL IV SCH (17:30)
[2016-06-24] MEDS ORDERED: MORPHINE SULFATE IV PUSH PRN (17:30)
--- NOTE | 2016-06-24 18:36 | DEATH SUM ---
Summary Demographics Date Pronounced : Jun 24, 2016 Time Of : 1748 Pronounced By: Lucian WHITE RN, Nik MAI RN, Juan Pitts M.D. Preliminary Cause of : Multi Organ Failure Ru Pitts MD Jun 24, 2016 18:36
[2016-06-24 19:19] LABS: BLOOD UREA NITROGEN ND MG/DL (7-18)
[2016-06-24 19:20] LABS: GLOMERULAR FILTRATION RATE ND ML/MIN (>89)
[2016-06-24 19:22] LABS: CHLORIDE ND MEQ/L (98-107); POTASSIUM ND MEQ/L (3.5-5.1); SODIUM (NA) ND MEQ/L (136-145)
[2016-06-24 19:23] LABS: ANION GAP ND MEQ/L (5-15); BICARBONATE ND MEQ/L (21.0-32.0)
--- NOTE | 2016-06-24 20:54 | HHI.HCPN ---
Reason for visit a. To assist with evaluation and management of symptoms including: abdominal pain; encephalopathy; dyspnea b. To assist medical decision maker(s) with: better understanding of current medical conditions; weighing benefits/burdens of medical treatment options; making medical treatment decisions. . Subjective/Interval History Called up by nurses to visit patient/family after son arrived from [place] to say his goodbyes. Family expressed desire to move forward today with withdrawal of life support. No signficiant changes overnight. Patient has remained intubated, mechanically ventilated, sedated, and in septic shock requiring pressor support. . Family/friend interactions Met with extended family in conference room including daughter, son-in-law, three grandchildren and others. Provided anticipatory guidance to family regarding withdrawal of life support and post withdrawal comfort care. Discussed law/ethics, procedure details including medication, option to attend, role of nursing staff, etc. Answered all questions. total time of family meeting --> 20 minutes. Led family back to room. answered final questions at bedside. . Advance Directives Living Will: Never completed Health Care Surrogate: Copy in medical record Durable Power of Relocation Commissioner: Never completed Advance Directive Specifics Date completed: There is a healthcare surrogate designation on the chart dated 04/26/16. There is also a power of contract attorney form but it is not for healthcare. . Health Care Surrogate(s): The patient's Dayday Agarwal -- his designated as the health care surrogate. . Documented care wishes: There is no written documentation of the patient's own health care goals/ preferences. . Objective Vital Signs Date Time Temp Pulse Resp B/P Pulse Ox O2 Delivery O2 Flow Rate FiO2 06/24/16 17:12 Room Air 06/24/16 14:00 87 06/24/16 12:00 81 06/24/16 12:00 97.9 81 20 92/52 98 06/24/16 12:00 40 06/24/16 11:02 99 40 06/24/16 10:00 80 06/24/16 08:00 95.7 81 20 106/58 98 06/24/16 08:00 40 06/24/16 08:00 81 06/24/16 07:51 97 40 06/24/16 07:00 98 Mechanical Ventilator 40 06/24/16 04:10 96 40 06/24/16 04:00 96.3 82 18 112/61 97 06/24/16 04:00 40 06/24/16 01:08 96 40 06/24/16 00:00 95.5 81 18 103/60 96 06/24/16 00:00 40 06/23/16 21:59 96 40 Intake & Output 06/24/16 06/24/16 07:00 19:00 Intake Total 3689 ml 1886 ml Output Total 1140 ml 750 ml Balance 2549 ml 1136 ml Intake IV Total 3689 ml 1886 ml Output Urine Total 625 ml 300 ml Stool Total 30 ml Gastric Drainage Total 0 ml 0 ml Chest Tube Drainage Total 110 ml 130 ml Drainage Total 375 ml 320 ml . Physical Exam CONSTITUTIONAL/GENERAL: The patient is pale, frail-appearing, orotracheally intubated in an surgical intensive care unit bed. She is under mild sedation. She does not awaken on exam. She is in no apparent distress. TUBES/LINES/DRAINS: Right chest tube; Lentz catheter; peripheral IVs; left subclavian central line; left radial arterial line; orogastric tube; colostomy appliance SKIN: No jaundice, rashes. Skin temperature appropriate. Not diaphoretic. EYES: Pupils equal and round . Unable to evaluate extraocular movements. No scleral icterus. No injection or drainage. Fundi not examined. ENT: Unable to evaluate hearing.. Nose without bleeding or purulent drainage. Throat without visible erythema, exudates, masses, or lesions. NECK: Trachea midline. CARDIOVASCULAR: Regular rate and rhythm . Faint systolic murmur. No audible gallops, or rubs. No JVD. RESPIRATORY/CHEST: Symmetric, unlabored respirations. Breath sounds diminished on right. Right chest tube in place. No wheezes, rales, or rhonchi. GASTROINTESTINAL: Abdomen is distended and slightly firm. Dressing over midline surgical wound. No hepato-splenomegaly, or palpable masses. There are 2 LAWRENCE drains on the left. Ileostomy present. No audible bowel sounds at this time. GENITOURINARY: Without palpable bladder distension. Lentz catheter in place. MUSCULOSKELETAL: Extremities without clubbing, or edema. Fingers are bluish. No calf tenderness. LYMPHATICS: Not examined. NEUROLOGICAL: Does not stir to voice or exam PSYCHIATRIC: Unable to evaluate due to level of responsiveness. . Diagnostic Tests Laboratory Laboratory Tests Test 06/22/16 06/22/16 06/23/16 06/23/16 04:00 13:26 03:15 20:20 White Blood Count 15.2 TH/MM3 17.0 TH/MM3 (4.0-11.0) (4.0-11.0) Red Blood Count 3.32 MIL/MM3 3.65 MIL/MM3 (4.00-5.30) (4.00-5.30) Hemoglobin 8.3 GM/DL 9.2 GM/DL (11.6-15.3) (11.6-15.3) Hematocrit 25.8 % 28.1 % (35.0-46.0) (35.0-46.0) Mean Corpuscular Volume 77.8 FL 76.8 FL (80.0-100.0) (80.0-100.0) Mean Corpuscular Hemoglobin 25.1 PG 25.3 PG (27.0-34.0) (27.0-34.0) Mean Corpuscular Hemoglobin 32.3 % 32.9 % Concent (32.0-36.0) (32.0-36.0) Red Cell Distribution Width 21.4 % 19.6 % (11.6-17.2) (11.6-17.2) Platelet Count 103 TH/MM3 88 TH/MM3 (150-450) (150-450) Mean Platelet Volume 8.7 FL 9.1 FL (7.0-11.0) (7.0-11.0) Neutrophils (%) (Auto) 92.7 % 92.9 % (16.0-70.0) (16.0-70.0) Lymphocytes (%) (Auto) 3.7 % 2.6 % (9.0-44.0) (9.0-44.0) Monocytes (%) (Auto) 3.3 % (0.0-8.0) 4.4 % (0.0-8.0) Eosinophils (%) (Auto) 0.2 % (0.0-4.0) 0.0 % (0.0-4.0) Basophils (%) (Auto) 0.1 % (0.0-2.0) 0.1 % (0.0-2.0) Neutrophils # (Auto) 14.0 TH/MM3 15.8 TH/MM3 (1.8-7.7) (1.8-7.7) Lymphocytes # (Auto) 0.6 TH/MM3 0.4 TH/MM3 (1.0-4.8) (1.0-4.8) Monocytes # (Auto) 0.5 TH/MM3 0.7 TH/MM3 (0-0.9) (0-0.9) Eosinophils # (Auto) 0.0 TH/MM3 0.0 TH/MM3 (0-0.4) (0-0.4) Basophils # (Auto) 0.0 TH/MM3 0.0 TH/MM3 (0-0.2) (0-0.2) CBC Comment AUTO DIFF AUTO DIFF Differential Total Cells 100 100 Counted Neutrophils % (Manual) 28 % (16-70) 77 % (16-70) Band Neutrophils % 67 % (0-6) 18 % (0-6) Lymphocytes % 2 % (9-44) 2 % (9-44) Neutrophils # (Manual) 14.9 TH/MM3 16.3 TH/MM3 (1.8-7.7) (1.8-7.7) Metamyelocytes 3 % (0-1) 1 % (0-1) Differential Comment FINAL DIFF FINAL DIFF MANUAL MANUAL Platelet Estimate LOW (NORMAL) LOW (NORMAL) Platelet Morphology Comment NORMAL NORMAL (NORMAL) (NORMAL) Acanthocytes OCC (NORMAL) Sodium Level 141 MEQ/L 143 MEQ/L 140 MEQ/L (136-145) (136-145) (136-145) Potassium Level 3.7 MEQ/L 3.0 MEQ/L 4.0 MEQ/L (3.5-5.1) (3.5-5.1) (3.5-5.1) Chloride Level 110 MEQ/L 112 MEQ/L 112 MEQ/L (98-107) (98-107) (98-107) Carbon Dioxide Level 19.2 MEQ/L 18.7 MEQ/L 18.8 MEQ/L (21.0-32.0) (21.0-32.0) (21.0-32.0) Anion Gap 12 MEQ/L (5-15) 12 MEQ/L (5-15) 9 MEQ/L (5-15) Blood Urea Nitrogen 24 MG/DL (7-18) 24 MG/DL (7-18) 23 MG/DL (7-18) Creatinine 0.77 MG/DL 0.70 MG/DL 0.69 MG/DL (0.50-1.00) (0.50-1.00) (0.50-1.00) Estimat Glomerular Filtration 71 ML/MIN (>89) 79 ML/MIN (>89) 80 ML/MIN (>89) Rate Random Glucose 108 MG/DL 111 MG/DL 117 MG/DL (74-106) (74-106) (74-106) Calcium Level 6.8 MG/DL 6.5 MG/DL 6.7 MG/DL (8.5-10.1) (8.5-10.1) (8.5-10.1) Protein Corrected Calcium 9.0 MG/DL 8.5 MG/DL 8.6 MG/DL (8.5-10.1) (8.5-10.1) (8.5-10.1) Total Protein 3.3 GM/DL 3.4 GM/DL 3.7 GM/DL (6.4-8.2) (6.4-8.2) (6.4-8.2) Blood Type O NEGATIVE Crossmatch Leukocyte-Reduced Red Blood Cells Blood Bank Comment Monocytes % 2 % (0-8) Helmet Cells OCC (NORMAL) Agness Cells 1+ (NORMAL) Keratocytes OCC (NORMAL) Magnesium Level 1.5 MG/DL (1.5-2.5) Test 06/24/16 06/24/16 05:00 17:25 White Blood Count 17.4 TH/MM3 (4.0-11.0) Red Blood Count 3.87 MIL/MM3 (4.00-5.30) Hemoglobin 9.7 GM/DL (11.6-15.3) Hematocrit 30.3 % (35.0-46.0) Mean Corpuscular Volume 78.5 FL (80.0-100.0) Mean Corpuscular Hemoglobin 25.1 PG (27.0-34.0) Mean Corpuscular Hemoglobin 32.0 % Concent (32.0-36.0) Red Cell Distribution Width 19.7 % (11.6-17.2) Platelet Count 89 TH/MM3 (150-450) Mean Platelet Volume 8.7 FL (7.0-11.0) Neutrophils (%) (Auto) 92.9 % (16.0-70.0) Lymphocytes (%) (Auto) 2.3 % (9.0-44.0) Monocytes (%) (Auto) 4.7 % (0.0-8.0) Eosinophils (%) (Auto) 0.0 % (0.0-4.0) Basophils (%) (Auto) 0.1 % (0.0-2.0) Neutrophils # (Auto) 16.1 TH/MM3 (1.8-7.7) Lymphocytes # (Auto) 0.4 TH/MM3 (1.0-4.8) Monocytes # (Auto) 0.8 TH/MM3 (0-0.9) Eosinophils # (Auto) 0.0 TH/MM3 (0-0.4) Basophils # (Auto) 0.0 TH/MM3 (0-0.2) CBC Comment AUTO DIFF Differential Comment AUTO DIFF CONFIRMED Platelet Estimate LOW (NORMAL) Platelet Morphology Comment NORMAL (NORMAL) Ovalocytes 1+ (NORMAL) Agness Cells 1+ (NORMAL) Sodium Level 142 MEQ/L MEQ/L (136-145) (136-145) Potassium Level 4.0 MEQ/L MEQ/L (3.5-5.1) (3.5-5.1) Chloride Level 114 MEQ/L MEQ/L (98-107) (98-107) Carbon Dioxide Level 18.9 MEQ/L MEQ/L (21.0-32.0) (21.0-32.0) Anion Gap 9 MEQ/L (5-15) MEQ/L (5-15) Blood Urea Nitrogen 23 MG/DL (7-18) MG/DL (7-18) Creatinine 0.67 MG/DL MG/DL (0.50-1.00) (0.50-1.00) Estimat Glomerular Filtration 83 ML/MIN (>89) ML/MIN (>89) Rate Random Glucose 124 MG/DL MG/DL (74-106) (74-106) Calcium Level 6.9 MG/DL MG/DL (8.5-10.1) (8.5-10.1) Protein Corrected Calcium 8.9 MG/DL (8.5-10.1) Total Protein 3.6 GM/DL (6.4-8.2) Phosphorus Level MG/DL (2.5-4.9) . Result Diagram: 06/24/16 0500 Imaging Last Impressions Chest X-Ray 06/20/16 1341 Signed Impressions: Service Date/Time: Monday, June 20, 2016 13:58 - CONCLUSION: Appropriate positioning of the central line. Large amount of free air identified under the diaphragm. Right-sided pleural fluid. Fabiola Griffiths MD Head CT 06/20/16 0000 Signed Impressions: Service Date/Time: Monday, June 20, 2016 13:47 - CONCLUSION: No acute disease. Fabiola Griffiths MD Chest CT 06/20/16 0000 Signed Impressions: Service Date/Time: Monday, June 20, 2016 13:51 - CONCLUSION: Large right-sided pleural effusion and overlying bilateral basilar atelectasis. Cardiomegaly with evidence of congestive heart failure. The nodule identified in the right lower lung is concerning for possible metastatic disease given the abnormal findings identified in the colon. Large amount of free air identified under the diaphragm and free fluid. The referring team is aware of these findings.. Fabiola Griffiths MD Abdomen/Pelvis CT 06/20/16 0000 Signed Impressions: Service Date/Time: Monday, June 20, 2016 13:51 - CONCLUSION: There is a large irregular mass involving the descending colon with tethering and fistulization with the adjacent duodenum and causing obstruction within the left kidney. There is a large amount of free air identified within the abdomen and pelvis consistent with bowel perforation. There is ascites and a large right-sided pleural effusion. The nodule identified within the right lung base is concerning for metastatic disease. Fabiola Griffiths MD . Procedures * Arterial line placement * Central line placement * Exploratory laparotomy * Subtotal colectomy * Debulking of a sigmoid colon tumor * Closure of the duodenum no colonic fistula * Partial omentectomy * End ileostomy Dr. 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 . Assessment and Plan Disease Oriented Problem List: (1) Bowel perforation (2) Peritonitis (acute) generalized (3) Severe sepsis with acute organ dysfunction (4) Septic shock (5) Respiratory failure, acute (6) Pleural effusion (7) Lung metastases (8) Abdominal mass Comment: Probable malignancy Symptom Scale: (1) Pain 0-10 Scale: Unable to quantify Comment: Patient was complaining of abdominal pain when she was still verbal. Prehospitalization pain syndromes included tendinitis, bursitis, carpal tunnel, and some neuropathy. Other sources of pain here include postoperative pain, prolonged bedbound status, chest tube, Lentz catheter, vascular access lines, etc. Patient has a fentanyl drip ordered. .. (2) Dyspnea 0-10 Scale: Unable to quantify Comment: Dyspnea currently managed via ventilator. Patient with pleural effusion and possible pulmonary metastasis. (3) Encephalopathy 0-10 Scale: Unable to quantify Comment: Unresponsive. . Pertinent Non-Medical Issues Psychosocial: Had been living independently up until hospitalization in May. Has daughter and granddaughter who live locally. Spiritual: Reason of [employer] tradition. Currently a member of the [employer]. Would appreciate sweat band separator visits. Legal: No known living will. A designation of health care surrogate is on the chart dated 04/26/16. Patient's daughter Silvina Carolina is the surrogate. Ethical issues impacting care: Patient is incapacitated to make her own health care decisions and is not expected to regain capacity. . Important Contacts Devon Agarwal (daughter and health care surrogate) [phone] .. Prognosis This 86-year-old female is currently critically ill in the surgical intensive care unit. She has just undergone major surgery. She had extensive peritonitis and septic shock. Should she be able to survive the intensive care unit she has what appears to be extensive metastatic cancer of uncertain primary. She would not be a candidate for aggressive anticancer treatments. It is still questionable whether she will be able to survive the hospitalization. Life expectancy and the best of circumstances would probably be weeks to months should she managed to rally here. She would be an appropriate candidate for hospice services at such time that family feels it's time to transition to "comfort measures only." . Code Status: No Code (Now that grandson has arrived, code status changed to NO CODE) Plan == CODE STATUS: NO CODE -- Now that grandson has arrived and said his "good- byes", code status changed to NO CODE> == Decision-making: The patient is incapacitated to make her own health care decisions. She is not expected to regain capacity. The patient's designated health care surrogate is her Dayday Agrawal. == Goals of medical treatment: Family has decided to go forward with compassionate withdrawal of life support today. == Pain: Sources of pain include recent abdominal surgery; prolonged bedbound status; chest tube; vascular access line; Lentz catheter; orotracheal intubation. Patient currently has orders for a fentanyl drip. This appears to be adequate. No further recommendations at this time == Dyspnea: Patient has a right sided pleural effusion with chest tube in place. Dyspnea is currently managed her ventilator management. No further recommendations at this time. == Encephalopathy: This is probably multifactorial. Patient is critically ill and is in septic shock. == Per above, met with extended family to provide anticipatory guidance and answer questions regarding compassionate withdrawal of life support and post withdrawal comfort care. == Reviewed orders == Remained at bedside following withdrawal to ensure adequacy of orders for comfort. . Time Spent Total Floor Time (mins): 40 (Total floor time included chart review; patient exam; above referenced family mtg; collaboration with nurses regarding withdrawal orders.) Face to Face Time (mins): 10 >50% Counseling/Coord of Care: Yes Attestation To help prompt me to consider important information that might be impacting today's encounter and assessment, information from prior notes written by myself or my colleagues may have been "brought forward" into today's note. My signature on this note, however, is an attestation that I personally performed the exam, history, and/or decision-making noted today, and, unless otherwise indicated, the interactions with patient, family, and staff as well as the review of records all occurred today. I also attest that the listed assessment and stated plan reflect my best clinical judgment today based on the combination of historical information, prior notes, and today's exam/ interactions. When time spent is documented, it refers only to time spent today by the signer, or if indicated, combined time spent today by collaborating physician/nurse practitioner. . Dakota Chacon MD Jun 24, 2016 20:54
[2016-06-30 08:18] LABS: STAT YES
--- NOTE | 2016-07-02 14:15 | HHI.DS ---
Discharge Summary Admission Date Jun 20, 2016 at 14:25 Discharge Date: Jun 24, 2016 Admitting Diagnosis perforated bowel, septic shock Procedures Exploratory laparotomy with subtotal colectomy and ileostomy, partial omentectomy and repair of duodenal colic fistula, right tube thoracostomy placed. Brief History Frail 86 y/o woman developed vague abdominal pain which progressed to severe while receiving intravenous antibiotics and fluid resuscitation. Seen by Dr. Wilson for general surgery evaluation. Eventually developed pneumo-peritoneum and required laparotomy and Exploratory laparotomy with subtotal colectomy and ileostomy, partial omentectomy and repair of duodenal colic fistula, right tube thoracostomy placed. Postoperatively she remained severely septic requiring high dose vasopressor support and mechanical ventilation. It became obvious to all involved that she would not survive this disease process due to overwhelming sepsis. Family gathered including POA for healthcare. After discussions with Dr. Chacon and the Palliative Care service artificial support was discontinued and she at 1748 hours on 06/24/2016, diagnosed by cardiac standstill. 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 Imaging Perforated colon. Duodenal-colonic fistula. PE at Discharge . Hospital Course 86 y/o jail resident with 7 day course of abdominal discomfort treated as outpatient. Presents today with free intraperitoneal air and distention. CT reveals sigmoid colon mass and proximal distention. CT cheat shows consideral bilateral basilar consolidation. Surgical service is evaluating for laparotomy, proximal colostomy. She presented is shock and hypotension and has responded to aggressive fluid resuscitation. 06/20/16 Seen in [facility] upon return from OR following ex lap with subtotal colectomy (transverse, descending, sigmoid colectomy), repair of duodenocolonic fistula, partial omentectomy, ileostomy. Right sided chest tube was placed for pleural effusion. Mass was noted in the liver intraoperatively. There is also suspected right lung mass. Intraoperatively received 3500 crystalloid, 250 albumin, 2 units packed red cells, 2 units FFP. Her and output was 200. EBL 300. She received 3 Amps of sodium bicarbonate in OR. She returns from OR on levophed 20 mcg/min and neosynephrine. 06/21: Continuing septic course after gross peritoneal contamination from perforated colon. 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 06/22: Renal function acceptable despite florid sepsis. Weaning vasopressors but bandemia indicates ongoing septic condition. 06/23: She acts septic with ongoing vasopressor requirements. It will be hard to get her extubated with the amount of pain she has; any movement has her grimacing. We don't have Pseudomonas coverage but her numerous allergies pretty much would require an aminoglycoside. 06/24: Ongoing septic course. Nutritional state decimated by chronic disease. Family planning for withdrawal. Update: Family gathered and requested withdrawal of artificial support as planned earlier. All participants in agreement for planned withdrawal. Sedation and analgesia medications requested by family to avoid any discomfort. We will comply with their wishes. Pt Condition on Discharge: Deteriorating Ru Pitts MD Jul 02, 2016 14:15
== END 2016-06-24 19:05 | disposition expired | DRG 326 ==
LOC: NEPE 13:14 → NEDA 14:25 → N03B 20:08
PROVIDERS: ADMIT Surgery Surgical Critical Care; ATTEND Surgery Surgical Critical Care
PROC: 0D1B0Z4 Bypass Ileum to Cutaneous, Open Approach (ICD-10-PCS; 2016-06-20)
PROC: 0WJP0ZZ Inspection of Gastrointestinal Tract, Open Approach (ICD-10-PCS; 2016-06-20)
PROC: 0WJG0ZZ Inspection of Peritoneal Cavity, Open Approach (ICD-10-PCS; 2016-06-20)
PROC: 0DBS0ZZ (ICD-10-PCS; 2016-06-20)
PROC: 0DQG0ZZ Repair Left Large Intestine, Open Approach (ICD-10-PCS; 2016-06-20)
PROC: 0DTN0ZZ Resection of Sigmoid Colon, Open Approach (ICD-10-PCS; 2016-06-20)
PROC: 0DTL0ZZ Resection of Transverse Colon, Open Approach (ICD-10-PCS; 2016-06-20)
PROC: 0DTM0ZZ Resection of Descending Colon, Open Approach (ICD-10-PCS; 2016-06-20)
PROC: 0W9930Z Drainage of Right Pleural Cavity with Drainage Device, Percutaneous Approach (ICD-10-PCS; 2016-06-20)
PROC: 5A1945Z Respiratory Ventilation, 24-96 Consecutive Hours (ICD-10-PCS; 2016-06-20)
PROC: 30233K1 Transfusion of Nonautologous Frozen Plasma into Peripheral Vein, Percutaneous Approach (ICD-10-PCS; 2016-06-20)
PROC: 30233N1 Transfusion of Nonautologous Red Blood Cells into Peripheral Vein, Percutaneous Approach (ICD-10-PCS; 2016-06-20)
PROC: 0DQ90ZZ Repair Duodenum, Open Approach (ICD-10-PCS; principal; 2016-06-20 15:24)
PROC: 0T9B70Z Drainage of Bladder with Drainage Device, Via Natural or Artificial Opening (ICD-10-PCS; 2016-06-21)
DX: K63.1 Perforation of intestine (nontraumatic) (principal); A41.9 Sepsis, unspecified organism; R65.21 Severe sepsis with septic shock; K65.0 Generalized (acute) peritonitis; I21.4 Non-ST elevation (NSTEMI) myocardial infarction; J96.00 Acute respiratory failure, unspecified whether with hypoxia or hypercapnia; G93.40 Encephalopathy, unspecified; C78.01 Secondary malignant neoplasm of right lung; J90 Pleural effusion, not elsewhere classified; N17.9 Acute kidney failure, unspecified; C18.7 Malignant neoplasm of sigmoid colon; K56.69 Other intestinal obstruction; E44.0 Moderate protein-calorie malnutrition; D68.9 Coagulation defect, unspecified; K63.2 Fistula of intestine; K66.8 Other specified disorders of peritoneum; K76.9 Liver disease, unspecified; I51.7 Cardiomegaly; D64.9 Anemia, unspecified; E83.51 Hypocalcemia; M06.9 Rheumatoid arthritis, unspecified; Z88.1 Allergy status to other antibiotic agents; Z88.5 Allergy status to narcotic agent; Z88.0 Allergy status to penicillin; Z88.2 Allergy status to sulfonamides; Z88.8 Allergy status to other drugs, medicaments and biological substances; I25.2 Old myocardial infarction; G62.9 Polyneuropathy, unspecified; M77.9 Enthesopathy, unspecified; Z51.5 Encounter for palliative care; Z87.11 Personal history of peptic ulcer disease; R00.0 Tachycardia, unspecified
CPT/HCPCS: 36430; 36556; 36600; 70450; 71010; 71250; 74176; 80048; 80053; 80307; 81001; 82550; 82805; 82948; 83605; 83735; 84155; 84443; 84484; 85007; 85025; 85027; 85610; 86850; 86900; 86901; 86920; 86927; 87015; 87040; 87070; 87077; 87086; 87102; 87116; 87186; 87205; 87206; 87641; 88307; 88309; 93005; 94003; C9113; J0131; J1100; J1250; J1450; J1720; J2060; J2250; J2370; J2405; J3010; J3475; J3480; J7030; J7060; J7120; P9016; P9017; P9045; P9047